=== PATIENT | male | born 1955 | race Caucasian/White ===

== ENCOUNTER → 2019-09-06 07:31 | Outpatient (CLI) | payer MEDICARE, OTHER, SELFPAY ==
--- NOTE | 2019-09-06 07:37 | CA_ITS ---
APPROVED REPORT Bilateral Lower Extremity Venous Study for DVT. 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: Cristin Dunbar RVT Indications Lower Extremity Pain: Bilateral Current Smoker CAD Risk Factors Cardiac Disease Current Smoker CAD Vein Imaging CFV (R): compressive, spontaneous, phasic, augmentation FEM (R): compressive, spontaneous, phasic, augmentation POP (R): compressive, spontaneous, phasic, augmentation PTV (R): Compressible GSV (R): Compressible Peroneals (R):Compressible GAS (R): Compressible CFV (L): compressive, spontaneous, phasic, augmentation FEM (L): compressive, spontaneous, phasic, augmentation POP (L): compressive, spontaneous, phasic, augmentation PTV (L): Compressible GSV (L): Compressible Peroneals (L):Compressible GAS (L): Compressible Findings Study suggests no evidence of DVT of the bilateral lower extremities. Study suggests no evidence of SVT of the bilateral lower extremities. Conclusion No evidence of DVT or superficial thrombophlebitis in the veins scanned of the right lower extremity. No evidence of DVT or superficial thrombophlebitis in the veins scanned of the left lower extremity. Electronically signed by : Genaro Trivedi MD 09/06/2019 16:45:02
--- NOTE | 2019-09-06 07:40 | US_ITS ---
APPROVED REPORT Exam Type: Lower Extremity Segmental Pressures Tire Retreader: Cristin Dunbar RVT Indications Claudication: Bilaterally Current Smoker skin colorchanges Risk Factors Hypertension CAD Hyperlipidemia Cardiac Disease Current Smoker Pressures/Indices Right Indices Left Indices Brachial 151.00 mmHg Brachial 142.00 mmHg Low Thigh 87.00 mmHg 0.58 Low Thigh Calf 71.00 mmHg 0.47 Calf 78.00 mmHg 0.52 Ankle(PT) 82.00 mmHg 0.54 Ankle(PT) 86.00 mmHg 0.57 Ankle(DP) 85.00 mmHg 0.56 Ankle(DP) 77.00 mmHg 0.51 Digit 43.00 mmHg 0.28 Digit 47.00 mmHg 0.31 Findings RT KAREN:0.54 LT KAREN:0.57 RT TBI:0.28 LT TBI:0.31 ABNORMAL WAVEFORMS AT ALL LEVELS BILATERAL DECREASED PULSES BILATERAL Conclusion RT KAREN:0.54 LT KAREN:0.57 RT TBI:0.28 LT TBI:0.31 ABNORMAL WAVEFORMS AT ALL LEVELS BILATERAL DECREASED PULSES BILATERAL MODERATE ARTERIAL DISEASE Critical Notification Physician Notified Date: 09/06/2019 Time: 08:42 Physician Name: JAJA Electronically signed by : Genaro Trivedi MD 09/06/2019 16:44:05
== END ==
PROVIDERS: PCP Nurse Practitioner Family; Visit Provider Nurse Practitioner Family
DX: I73.9 Peripheral vascular disease, unspecified (principal)
CPT/HCPCS: 93923; 93970

== ENCOUNTER → 2019-10-14 12:23 | Outpatient (CLI) | payer MEDICARE, OTHER, SELFPAY ==
[2019-10-14 15:19] LABS: Coronavirus 19 IgG Antibody Negative (Negative); Coronavirus 19 IgM Antibody Negative (Negative)
== END ==
DX: Z03.818 Encounter for observation for suspected exposure to other biological agents ruled out (principal)
CPT/HCPCS: 36415; 86328

== ENCOUNTER 2019-10-19 13:52 | Inpatient (IN) | payer MEDICARE, OTHER, SELFPAY ==
[2019-10-19] VITALS (13 sets, daily range): BP systolic 122–176; BP diastolic 68–108; PULSE 78–117; RESP 18–26; TEMP 36.5–36.7; O2SAT 97–100; BMI 19.9; BMI 25.9
--- NOTE | 2019-10-19 13:53 | ECG_ITS ---
APPROVED REPORT Exam: Resting ECG HR:107 bpm ECG Measurements Heart Rate 107 AXES MS P 67 QRSd 116 QRS 59 QT 352 T 7 QTc 469 <Conclusion> NSR with biatrial abnormality Right bundle branch block Abnormal ECG Electronically signed by : Talat Soto, 10/21/2019 17:09:53
--- NOTE | 2019-10-19 13:55 | CT_ITS ---
PROCEDURE: CT CHEST WO CON CLINICAL INDICATION: shortness of breath COMPARISON: No exams were available for comparison TECHNIQUE: Axial images obtained with sagittal and coronal reformats. All CT scans at the facility use one or more dose reduction, viz: automated exposure control, ma/kV adjustment per patient size (including targeted exams where dose is matched to indication, i.e. head), or iterative reconstruction technique. FINDINGS: HEART AND MEDIASTINAL STRUCTURES: Prior CABG. There is extensive coronary artery calcification. No mediastinal or hilar mass. There is a small hiatal hernia. There is mild thickening of the mid and distal esophagus with some minimal stranding of the para soft Jewel. A small paraesophageal lymph node is present at 12 mm along the left lateral and inferior aspect of the esophagus. LUNGS AND PLEURAL SPACES: COPD. Mild centrilobular and paraseptal emphysematous changes. There is mild respiratory motion artifact. There is consolidation in the right lower lobe posteriorly with small right effusion and mild atelectatic changes in the right middle lobe and right lower lobe. There are mild atelectatic changes in the left lung base. There are small bilateral pleural effusions. BONY STRUCTURES: There are old left-sided rib fractures UPPER ABDOMEN: Small hiatal hernia. Mild thickening of the distal esophagus. 1.8 cm left renal cyst. There is extensive renal artery calcification and/or stents. Most inferior image shows a small area of increased density in the gallbladder which could be due to artifact or a gallstone. ADDITIONAL FINDINGS: Gynecomastia IMPRESSION: 1. COPD with centrilobular and paraseptal emphysematous change with small bilateral effusions with consolidation in the right lung base posteriorly consistent with pneumonia and bilateral atelectatic changes. 2. Small hiatal hernia with mild thickening of the distal esophagus and mild stranding of the apparent soft Jewel fat. This could be seen with esophagitis. Neoplasm would be included in the differential diagnosis. Upper endoscopy or barium enema may provide further evaluation. There is a small paraesophageal lymph node. Dictated by: Genaro Trivedi MD 10/19/2019 14:43 Electronically signed by Genaro Trivedi MD in [place] 10/19/2019 14:43
[2019-10-19 14:06] LABS: ABG HCO3 20.8 mmhg (22.0-26.0); ABG Oxygen Saturation 99 % (90-100); ABG PCO2 45.3 mmhg (35.0-45.0); ABG PH 7.28 mmol/L (7.35-7.45); ABG PO2 290.7 mmhg (80-100); ABG TCO2 22.2 mmhg (23-27)
[2019-10-19 14:07] LABS: Oxygen 100% %
[2019-10-19 14:08] LABS: Allen's Test ACCEPTABLE; Source L RADIAL
[2019-10-19 14:08] LABS: Chloride 103 mmol/L (98-107); Sodium 136 mmol/L (136-145)
[2019-10-19 14:11] LABS: Alanine Aminotransferase 25 U/L (12-78); Albumin Level 3.7 g/dl (3.5-5.0); Albumin/Globulin Ratio 1.3 (1.1-1.8); Alkaline Phosphatase 64 U/L (38-126); Aspartate Amino Transferase 38 U/L (17-59); Bilirubin,Total 0.8 mg/dl (0.2-1.3); Blood Urea Nitrogen 12 mg/dl (9-20); Carbon Dioxide 22 mmol/L (22.0-30.0); Creatinine Clearance Estimated 53 mL/min (50-200); Estimated Glomerular Filt Rate 61 ml/min (>60); GFR (African American) 74 ML/MIN (>60); Globulin 2.9 g/dL (1.3-3.2); Total Protein,Serum 6.6 g/dl (6.3-8.2)
[2019-10-19 14:12] LABS: Basophils # 0.1 K/mm3 (0-0.2); Basophils % 0.5 % (0.1-2.0); Calcium 8.9 mg/dl (8.4-10.2); Eosinophils # 0.1 K/mm3 (0.0-0.4); Eosinophils % 0.3 % (0.1-12.0); Glucose 174 mg/dl (74-100); Hematocrit 41.5 % (42.0-52.0); Lymphocytes # 2.8 K/mm3 (0.7-4.5); Lymphocytes % 18.6 % (10-50); Mean Corpuscular HGB Conc 33.7 g/dL (31.8-35.4); Mean Corpuscular Hemoglobin 34.2 pg (27.0-31.2); Mean Corpuscular Volume 101.5 fl (80-94); Mean Platelet Volume 8.6 fl (7.4-10.4); Monocytes # 0.8 K/mm3 (0.1-1.0); Monocytes % 5.6 % (1.7-9.3); Neutrophils # 11.1 K/mm3 (1.8-7.8); Platelet Count 234 K/mm3 (142-424); Red Blood Count 4.09 M/mm3 (4.60-6.20); Red Cell Distribution Width 13.8 % (11.5-17.5); White Blood Count 14.8 K/mm3 (4.8-10.8)
--- NOTE | 2019-10-19 14:15 | PC.NURSE ---
Pt to rad
--- NOTE | 2019-10-19 14:17 | PC.NURSE ---
Pt to CT with MITZI Oviedo
--- NOTE | 2019-10-19 14:39 | PC.NURSE ---
Returned from ct.
[2019-10-19 14:49] LABS: Lactic Acid 1.2 mmol/L (0.7-2.1)
[2019-10-19 15:07] LABS: Adenovirus,PCR Not Detected (NotDetected); Bordetella Pertussis Not Detected (NotDetected); Chlamydophila Pneumoniae, PCR Not Detected (NotDetected); Coronavirus 19, PCR Not Detected (NotDetected); Coronavirus 229E Not Detected (NotDetected); Coronavirus NL63 Not Detected (NotDetected); Coronavirus OC43 Not Detected (NotDetected); Coronovirus HKU1,PCR Not Detected (NotDetected); Human Metapneumovirus Not Detected (NotDetected); Influenza A, PCR Not Detected (NotDetected); Influenza AH1, 2009 Not Detected (NotDetected); Influenza AH1, PCR Not Detected (NotDetected); Influenza AH3,PCR Not Detected (NotDetected); Influenza B, PCR Not Detected (NotDetected); Mycoplasma Pneumoniae, PCR Not Detected (NotDected); Parainfluenza 1, PCR Not Detected (NotDetected); Parainfluenza 2, PCR Not Detected (NotDetected); Parainfluenza 3, PCR Not Detected (NotDetected); Parainfluenza 4, PCR Not Detected (NotDetected); Respiratory Syncytial Virus Not Detected (NotDetected); Rhinovirus/Enterovirus Not Detected (NotDetected)
--- NOTE | 2019-10-19 15:18 | PC.NURSE ---
pt sleeping and resting comfortably non rebreather removed and 02 @ 6 lpm via cannula
--- NOTE | 2019-10-19 15:27 | HMH.EDSOB ---
ED Disposition Clinical Impression: Bilateral pneumonia Disposition: Admitted as Observation Condition on Discharge: Good Instructions: Pneumonia-Adult Additional Instructions: Spoke to Dr. Robles for admission for this patient. Referrals: Zehra Barajas [Primary Care Provider] - - Critical Care Critical Care Time: No Attestation: On 10/19/19, the high probability of a clinically significant, sudden or life threatening deterioration of the following system(s) required my full and direct attention, intervention and personal management. The time I documented below is in addition to time spent performing reported procedures but includes the following listed in this critical care notation. Medical Decision Making - Medical Records Medical records reviewed: Yes: I reviewed the patient's medical records. - Kyle Inquiry Pt receiving controlled substance: No Vital Signs: 10/19/19 13:47 10/19/19 14:07 10/19/19 15:17 Temperature 97.9 F Temperature Source Oral Pulse Rate [Radial] 107 H 117 H 78 Respiratory Rate 22 26 H Blood Pressure [Right Arm] 173/108 H 176/103 H 140/85 Blood Pressure Mean [Right Arm] 129 127 103 Blood Pressure Source [Right Arm] Automatic Cuff Automatic Cuff Automatic Cuff Blood Pressure Position [Right Arm] Sitting Sitting Sitting 02 Sat by Pulse Oximetry 100 99 100 Oxygen Delivery Method Non-Rebreather Non-Rebreather Nasal Cannula Oxygen Flow Rate (LPM) 6 10/19/19 15:25 Temperature Temperature Source Pulse Rate [Radial] 78 Respiratory Rate Blood Pressure [Right Arm] 149/89 H Blood Pressure Mean [Right Arm] 109 Blood Pressure Source [Right Arm] Automatic Cuff Blood Pressure Position [Right Arm] Sitting 02 Sat by Pulse Oximetry 100 Oxygen Delivery Method Nasal Cannula Oxygen Flow Rate (LPM) 6 - Lab Data Lab results reviewed: Yes: I reviewed the patient's lab results. Lab Results 10/19/19 13:44: WBC 14.8 H, RBC 4.09 L, Hgb 14.0 L, Hct 41.5 L, MCV 101.5 H, MCH 34.2 H, MCHC 33.7, RDW 13.8, Plt Count 234, MPV 8.6, Neut % (Auto) 75.0, Lymph % (Auto) 18.6, [place] % (Auto) 5.6, Eos % (Auto) 0.3, Baso % (Auto) 0.5, Neut # (Auto) 11.1 H, Lymph # (Auto) 2.8, [place] # (Auto) 0.8, Eos # (Auto) 0.1, Baso # (Auto) 0.1 10/19/19 13:44: Sodium 136, Potassium 4.0, Chloride 103, Carbon Dioxide 22, Anion Gap 15.0, BUN 12, Creatinine 1.20, Estimated Creat Clear 53, Estimated GFR 61, Est GFR ( Amer) 74, Glucose 174 H, Calcium 8.9, Total Bilirubin 0.8, AST 38, ALT 25, Alkaline Phosphatase 64, Total Protein 6.6, Albumin 3.7, Globulin 2.9, Albumin/Globulin Ratio 1.3 10/19/19 13:55: Specimen Source L radial, O2 % 100%, ABG pH 7.28 L, ABG pCO2 45.3 H, ABG pO2 290.7 H, ABG HCO3 20.8 L, ABG Total CO2 22.2 L, ABG O2 Saturation 99, ABG Base Excess -6.0 L, Genaro Test Acceptable 10/19/19 14:32: Lactate 1.2 Result diagrams: 10/19/19 13:44 10/19/19 13:44 Orders (Tests/Meds): ED MEDICATIONS Generic Name Dose Route Start Last Admin Trade Name Freq PRN Reason Stop Dose Admin Ceftriaxone Sodium 1 gm/ 50 mls @ 100 mls/hr 10/19/19 15:45 10/19/19 15:35 Sodium Chloride IV 11/02/19 15:44 100 mls/hr Q24H ALVAREZ Administration Protocol Sodium Chloride 50 ml 10/19/19 15:45 10/19/19 15:35 Sod Chlor 0.9% 50ml Bag IV 10/19/19 15:46 50 ml ONCE ONE Administration Discontinued Medications Generic Name Dose Route Start Last Admin Trade Name Freq PRN Reason Stop Dose Admin Albuterol/Ipratropium 3 ml 10/19/19 14:00 10/19/19 14:00 Duoneb 3ml Neb IH 10/19/19 14:01 3 ml ONCE ONE Administration Diphenhydramine HCl 25 mg 10/19/19 14:42 10/19/19 14:51 Benadryl 50mg/1ml Vial IV 10/19/19 14:43 25 mg ONCE ONE Administration Epinephrine HCl 0.3 mg 10/19/19 14:42 10/19/19 14:51 Epinephrine 1mg/Ml Amp IM 10/19/19 14:43 0.3 mg ONCE ONE Administration Methylprednisolone Sodium Succinate 125 mg 10/19/19 14:42 10/19/19 14:48 Solu-Medrol 125mg/2ml Vial IV 10/04
--- NOTE | 2019-10-19 15:29 | PC.NURSE ---
calling dr paz who is professional housing consultant for service at this time.
--- NOTE | 2019-10-19 15:32 | PC.NURSE ---
dr paz in a pt's room, will return call.
--- NOTE | 2019-10-19 15:44 | PC.NURSE ---
Pt to be admitted once COVID testing is back.
--- NOTE | 2019-10-19 16:58 | PC.NURSE ---
Report called to MITZI Horn.
--- NOTE | 2019-10-19 18:27 | PC.NURSE ---
Med rec completed with information from [facility] in [place]. Pt states he doesn't know what meds he takes.
[2019-10-19 18:54] LABS: Chloride 102 mmol/L (98-107); Sodium 136 mmol/L (136-145)
[2019-10-19 18:55] LABS: Potassium 4.6 mmoL/L (3.5-5.1)
[2019-10-19 18:57] LABS: Alanine Aminotransferase 25 U/L (12-78); Albumin Level 3.7 g/dl (3.5-5.0); Albumin/Globulin Ratio 1.3 (1.1-1.8); Alkaline Phosphatase 63 U/L (38-126); Anion Gap 14.6 mEq/L (5-15); Aspartate Amino Transferase 36 U/L (17-59); Bilirubin,Total 0.7 mg/dl (0.2-1.3); Blood Urea Nitrogen 14 mg/dl (9-20); Calcium 9.1 mg/dl (8.4-10.2); Carbon Dioxide 24 mmol/L (22.0-30.0); Creatinine Clearance Estimated 71 mL/min (50-200); Estimated Glomerular Filt Rate 67 ml/min (>60); GFR (African American) 81 ML/MIN (>60); Globulin 2.9 g/dL (1.3-3.2); Glucose 114 mg/dl (74-100); Total Protein,Serum 6.6 g/dl (6.3-8.2)
--- NOTE | 2019-10-19 19:04 | PC.NURSE ---
report given to olga
--- NOTE | 2019-10-19 20:11 | PC.NURSE ---
Pt's room air sat at rest = 93%. RT placed pt back on O2 at 2 lpm after neb tx.
--- NOTE | 2019-10-19 21:51 | HMH.HP ---
*Admission Date: 10/19/19 *Chief complaint: sob *History of present illness: this wm presented to [facility] ed with sob -pt had recent femoral vascular procedure and had sob and was found to have cap- pt was admitted with ivf and abx - has sig hx of copd and tob use - [facility] History I have reviewed the patient's past medical history: Yes Medical History: Reports:: Atherosclerotic Heart Disease, Hyperlipidemia, Hypertension, Myocardial Infarction Denies:: Cancer, Diabetes Mellitus Type 1, Diabetes Mellitus Type 2, MRSA *Have you ever received a pneumonia vaccine?: No *Have you received a flu vaccine this season?: No Other Surgeries: Yes: CABG, Other (Neck sx) Amputation: No Fractures: No - *Social History Last grade of school completed: 9th or 10th Smoking Status: Current every day smoker Tobacco Type: cigarettes # Packs/Day (cigarettes): 1 Alcohol Intake: current Alcohol Intake Frequency:: 3 or more drinks per day *Occupational Status:: employed Housing: house Household Members: none *Travel in the last 8 weeks: None Family Hx:: Diabetes, Heart Attack, Hyperlipidemia, Hypertension, Stroke Review of Systems - Review of Systems Review of systems:: pertinent systems reviewed and negative unless documented below - Constitutional Denies fever(s) - Eyes Denies change in vision - ENT Denies sore throat - *Cardiovascular Reports shortness of breath, Denies chest pain at rest - *Respiratory Reports cough, Reports shortness of breath, Denies coughing up blood - *Gastrointestinal Denies vomiting blood - *Genitourinary Denies blood in urine - *Musculoskeletal Denies joint pain - Integumentary/Breasts Denies rash - *Neurologic Denies seizure-like activity - Psychiatric Denies anxiety Meds Home Medications Medication Instructions Recorded Confirmed Type Clopidogrel Bisulfate [Clopidogrel 75 mg PO DAILY 10/19/19 10/19/19 History 75mg Tab] Lisinopril/Hydrochlorothiazide 1 tab PO DAILY 10/19/19 10/19/19 History [Lisinopril-Hctz 10-12.5 mg Tab] Pravastatin Sodium [Pravachol] 40 mg PO HS 10/19/19 10/19/19 History carvediloL [Carvedilol 6.25mg Tab] 6.25 mg PO BID 10/19/19 10/19/19 History Allergies Allergy/AdvReac Type Severity Reaction Status Date / Time Fish Containing Products Allergy Unknown Unknown Verified 10/19/19 15:39 allergy reaction fish derived Allergy Unknown Unknown Verified 10/19/19 15:39 allergy reaction shellfish derived Allergy Unknown Unknown Verified 10/19/19 15:39 allergy reaction Exam Vital signs and Labs for Last 24 Hours: Temp Pulse Resp BP Pulse Ox 97.7 F 102 H 20 122/68 98 10/19/19 19:41 10/19/19 20:08 10/19/19 19:41 10/19/19 19:41 10/19/19 20:00 Laboratory Results - last 24 hr 10/19/19 13:44: WBC 14.8 H, RBC 4.09 L, Hgb 14.0 L, Hct 41.5 L, MCV 101.5 H, MCH 34.2 H, MCHC 33.7, RDW 13.8, Plt Count 234, MPV 8.6, Neut % (Auto) 75.0, Lymph % (Auto) 18.6, [place] % (Auto) 5.6, Eos % (Auto) 0.3, Baso % (Auto) 0.5, Neut # (Auto) 11.1 H, Lymph # (Auto) 2.8, [place] # (Auto) 0.8, Eos # (Auto) 0.1, Baso # (Auto) 0.1 10/19/19 13:44: Sodium 136, Potassium 4.0, Chloride 103, Carbon Dioxide 22, Anion Gap 15.0, BUN 12, Creatinine 1.20, Estimated Creat Clear 53, Estimated GFR 61, Est GFR ( Amer) 74, Glucose 174 H, Calcium 8.9, Total Bilirubin 0.8, AST 38, ALT 25, Alkaline Phosphatase 64, Total Protein 6.6, Albumin 3.7, Globulin 2.9, Albumin/Globulin Ratio 1.3 10/19/19 13:55: Specimen Source L radial, O2 % 100%, ABG pH 7.28 L, ABG pCO2 45.3 H, ABG pO2 290.7 H, ABG HCO3 20.8 L, ABG Total CO2 22.2 L, ABG O2 Saturation 99, ABG Base Excess -6.0 L, Genaro Test Acceptable 10/19/19 14:32: Lactate 1.2 10/19/19 14:55: Chlamy pneumoniae PCR Not detected, Adenovirus (PCR) Not detected, B. pertussis DNA (PCR) Not detected, Coronavirus OC43 (PCR) Not detected, Coronavirus HKU1 (PCR) Not detected, Coronavirus 229E (PCR) Not detected, COVID-19 PCR Not de
[2019-10-20] VITALS (7 sets, daily range): BP systolic 118–166; BP diastolic 72–98; PULSE 80–108; RESP 18–22; TEMP 36.6–36.9; O2SAT 95–99; BMI 26.1
--- NOTE | 2019-10-20 04:07 | PC.NURSE ---
Addendum entered by Mitzi Nuno RN 10/20/19 04:23: Border on cath site drainage outlined. Original Note: Pt has rested well this shift. Femoral cath site on left side remains soft with no hematoma present. Dressing is CDI. Call light is within reach, no complaints at this time. Will continue to monitor.
--- NOTE | 2019-10-20 06:00 | XR_ITS ---
PROCEDURE: XR CHEST PORTABLE CLINICAL INDICATION: pneumonia COMPARISON: CXR1 CHEST-PORTABLE from 10/08/2015 CXR2V XR chest 2V from 04/12/2018 CT CHEST WO CON from 10/19/2019 FINDINGS: There is cardiomegaly with mild pulmonary venous congestion suggesting mild CHF. Consolidation is present in the right lower lobe consistent with pneumonia. The remaining lungs are clear. Small right effusion. No acute bony findings. There is an old right clavicular fracture. IMPRESSION: Mild CHF with right lower lobe pneumonia with small effusion. The pneumonia peers to have progressed since the previous CT scan of 10/19/2019 Dictated by: Genaro Trivedi MD 10/20/2019 06:29 Electronically signed by Genaro Trivedi MD in [place] 10/20/2019 06:29
[2019-10-20 06:27] LABS: Eosinophils % 0.1 % (0.1-12.0); Mean Corpuscular Hemoglobin 34.2 pg (27.0-31.2); Monocytes # 0.2 K/mm3 (0.1-1.0); Red Cell Distribution Width 13.7 % (11.5-17.5)
[2019-10-20 06:37] LABS: Hematocrit 34.3 % (42.0-52.0); Lymphocytes # 0.6 K/mm3 (0.7-4.5); Lymphocytes % 6.1 % (10-50); Mean Corpuscular HGB Conc 34.8 g/dL (31.8-35.4); Mean Corpuscular Volume 98.5 fl (80-94); Mean Platelet Volume 8.8 fl (7.4-10.4); Monocytes % 2.5 % (1.7-9.3); Neutrophils # 8.1 K/mm3 (1.8-7.8); Neutrophils % 91.2 % (37.0-80.0); Platelet Count 147 K/mm3 (142-424); Red Blood Count 3.49 M/mm3 (4.60-6.20); White Blood Count 8.9 K/mm3 (4.8-10.8)
[2019-10-20 06:40] LABS: Hemoglobin 11.9 g/dL (14.1-18.0)
[2019-10-20 06:42] LABS: MANUAL DIFFERENTIAL MANUAL DIFFERENTIAL (MANUAL DIFF)
--- NOTE | 2019-10-20 06:49 | P.CONPHA_ITS ---
[facility] Pharmacy VTE Monitoring - Patient Demographics Admission date: 10/19/19 Report Date: 10/20/19 Time: 06:49 Allergies/Adverse Reactions: Patient Allergies Fish Containing Products Allergy (Unknown, Verified 10/19/19 15:39) Unknown allergy reaction fish derived Allergy (Unknown, Verified 10/19/19 15:39) Unknown allergy reaction shellfish derived Allergy (Unknown, Verified 10/19/19 15:39) Unknown allergy reaction Height: 1.7 m Weight: 75.523 kg Patient Problems: Current Active Problems Bilateral pneumonia (Acute) CAP (community acquired pneumonia) (Acute) COPD (chronic obstructive pulmonary disease) (Acute) Tobacco use (Acute) - VTE Risk Labs: VTE Related Lab Results Hgb 11.9 g/dL (14.1-18.0) L D 10/20/19 05:51 Hct 34.3 % (42.0-52.0) L 10/20/19 05:51 Plt Count 147 K/mm3 (142-424) D 10/20/19 05:51 BUN 14 mg/dl (9-20) 10/19/19 18:40 Creatinine 1.10 mg/dl (0.66-1.25) 10/19/19 18:40 Estimated Creat Clear 71 mL/min (50-200) 10/19/19 18:40 Was VTE Risk Assessment Performed: Yes VTE Score: 3 VTE Risk Level: Low Risk - Prophylaxis VTE Prophylaxis Ordered?: Yes Types of VTE Prophylaxis: TEDS Knee High Location of Applied Device: Bilateral Lower Extremeties - VTE Diagnosis Confirmed Treatment or plan recommended: Continue Current Treatment
--- NOTE | 2019-10-20 06:50 | CA_ITS ---
APPROVED REPORT EXAM: Comprehensive 2D, Doppler, and color-flow Echocardiogram Grade Teacher: Marsha Ureña RT(R) Ht: 5 ft 7 in Wt: 166lbs BSA: 1.87 BP: 140/77 mmHg Indications: COPD, smoker, fatigue, edema, SOB, MORENO, hyperlipidemia, CAD, CABG 2D Dimensions LVOT 2.06 cm (M/F) 1.5-2.5 M-Mode Dimensions RVDd 2.04 cm (0.9-2.6) LVDd 5.14 cm (3.5-5.7) LVDs 4.25 cm (3.5-5.7) IVSd 1.14 cm (0.6-1.1) PWd 0.75 cm (0.6-1.1) EF (Teich) 35.90% FS 17.30% EDV (Teich) 126.10 mL ESV (Teich) 80.80 mL Left Ventricle Left atrium is moderately enlarged, left ventricle is normal size, mild concentric left ventricular hypertrophy, visually estimated ejection fraction 45%, there is marked hypokinesis involving the basal septum and inferior, inferior basal wall. Grade 1 diastolic dysfunction seen without tissue Doppler evidence of raise left atrial pressure. Right Ventricle Right atrium and right ventricle are mildly enlarged with normal contractility. Aortic Valve Aortic valve is minimally thickened and fibrosed. There is no aortic stenosis. Mitral Valve Mitral valve is grossly normal, there is moderate to severe mitral regurgitation. Tricuspid Valve Tricuspid valve is grossly normal, there is mild tricuspid regurgitation, tricuspid regurgitation jet velocity is inadequate for calculation of the right ventricular systolic pressure. Pulmonic Valve Pulmonic valve is poorly visualized. Great Vessels Aortic root is normal size. Pericardium No significant pericardial effusion noted. Conclusion 1. Moderately enlarged left atrium, normal left ventricular size, mild concentric left ventricular hypertrophy, visually estimated ejection fraction 45% with multiple segmental wall motion abnormality described above, grade 1 diastolic dysfunction seen without tissue Doppler evidence of raise left atrial pressure. 2. Moderate to severe mitral regurgitation. 3. Mild tricuspid regurgitation. 4. No significant pericardial effusion noted. Electronically signed by : Parviz Hernandez, 10/20/2019 11:38:00
--- NOTE | 2019-10-20 07:51 | HMH.PHAINT ---
MEDICATION RECONCILIATION COMPLETED BY USING EXTERNAL FILL HISTORY
--- NOTE | 2019-10-20 07:56 | HMH.PHAINT ---
HOME MEDICATION RECONCILIATION COMPLETED USING LIST FROM CLINIC PHARMACY
[2019-10-20 08:01] LABS: Lymphocytes % 6 % (10-50); Monocytes % 3 % (2-9); Neutrophils % 91 % (42-76); Total Cells Counted 100
[2019-10-20 08:02] LABS: Platelet Estimate Normal; RBC Morphology Normal
--- NOTE | 2019-10-20 08:50 | HMH.ACPN2 ---
Internal Medicine - PN: Subj *Date: 10/20/19 *Time: 08:04 Interval history: Patient laying in bed Exam Vital signs and Labs for Last 24 Hours: Temp Pulse Resp BP Pulse Ox 98.4 F 108 H 20 166/98 H 97 10/20/19 08:00 10/20/19 08:00 10/20/19 08:00 10/20/19 08:00 10/20/19 08:00 Laboratory Results - last 24 hr 10/19/19 13:44: WBC 14.8 H, RBC 4.09 L, Hgb 14.0 L, Hct 41.5 L, MCV 101.5 H, MCH 34.2 H, MCHC 33.7, RDW 13.8, Plt Count 234, MPV 8.6, Neut % (Auto) 75.0, Lymph % (Auto) 18.6, [place] % (Auto) 5.6, Eos % (Auto) 0.3, Baso % (Auto) 0.5, Neut # (Auto) 11.1 H, Lymph # (Auto) 2.8, [place] # (Auto) 0.8, Eos # (Auto) 0.1, Baso # (Auto) 0.1 10/19/19 13:44: Sodium 136, Potassium 4.0, Chloride 103, Carbon Dioxide 22, Anion Gap 15.0, BUN 12, Creatinine 1.20, Estimated Creat Clear 53, Estimated GFR 61, Est GFR ( Amer) 74, Glucose 174 H, Calcium 8.9, Total Bilirubin 0.8, AST 38, ALT 25, Alkaline Phosphatase 64, Total Protein 6.6, Albumin 3.7, Globulin 2.9, Albumin/Globulin Ratio 1.3 10/19/19 13:55: Specimen Source L radial, O2 % 100%, ABG pH 7.28 L, ABG pCO2 45.3 H, ABG pO2 290.7 H, ABG HCO3 20.8 L, ABG Total CO2 22.2 L, ABG O2 Saturation 99, ABG Base Excess -6.0 L, Genaro Test Acceptable 10/19/19 14:32: Lactate 1.2 10/19/19 14:55: Chlamy pneumoniae PCR Not detected, Adenovirus (PCR) Not detected, B. pertussis DNA (PCR) Not detected, Coronavirus OC43 (PCR) Not detected, Coronavirus HKU1 (PCR) Not detected, Coronavirus 229E (PCR) Not detected, COVID-19 PCR Not detected, Coronavirus NL63 (PCR) Not detected, Human Metapneumovir PCR Not detected, Influenza A (H1) PCR Not detected, Influ A (H1N1/09) PCR Not detected, Influenza A (H3) PCR Not detected, Influenza Type A (PCR) Not detected, Influenza Type B (PCR) Not detected, M. pneumoniae (PCR) Not detected, Parainfluenza 1 (PCR) Not detected, Parainfluenza 2 (PCR) Not detected, Parainfluenza 3 (PCR) Not detected, Parainfluenza 4 (PCR) Not detected, RSV (PCR) Not detected, Entero/Rhino (PCR) Not detected 10/19/19 18:40: Sodium 136, Potassium 4.6, Chloride 102, Carbon Dioxide 24, Anion Gap 14.6, BUN 14, Creatinine 1.10, Estimated Creat Clear 71, Estimated GFR 67, Est GFR ( Amer) 81, Glucose 114 H D, Calcium 9.1, Total Bilirubin 0.7, AST 36, ALT 25, Alkaline Phosphatase 63, Total Protein 6.6, Albumin 3.7, Globulin 2.9, Albumin/Globulin Ratio 1.3 10/20/19 05:51: WBC 8.9 D, RBC 3.49 L, Hgb 11.9 L D, Hct 34.3 L, MCV 98.5 H, MCH 34.2 H, MCHC 34.8, RDW 13.7, Plt Count 147 D, MPV 8.8, Neut % (Auto) 91.2 H, Lymph % (Auto) 6.1 L, [place] % (Auto) 2.5, Eos % (Auto) 0.1, Baso % (Auto) 0.0 L, Neut # (Auto) 8.1 H, Lymph # (Auto) 0.6 L, [place] # (Auto) 0.2, Eos # (Auto) 0.0, Baso # (Auto) 0.0, Total Counted 100, Neutrophils % (Manual) 91 H, Lymphocytes % (Manual) 6 L, Monocytes % (Manual) 3, Platelet Estimate Normal, RBC Morphology Normal I & O for Last 24 hours: Intake & Output 10/17/19 10/18/19 10/19/19 10/20/19 11:59 11:59 11:59 11:59 Intake Total 840 / 840 Output Total 200 / 200 Balance 640 / 640 Weight 166 lb 8 oz Microbiology Reports for the Last 24 Hours: Microbiology 10/19/19 14:32 Blood Blood Culture - Preliminary 10/19/19 15:15 Sputum - Expectorated Sputum Gram Stain - Final 10/19/19 15:15 Sputum - Expectorated Sputum Sputum Culture - Preliminary - Constitutional no acute distress - *Routine HEENT Exam Head: Present: normocephalic Eye: Present: PERRL ENT: Present: mucous membranes moist - *Routine Neck Exam Present: supple. Absent: lymphadenopathy - *Routine Respiratory Exam Present: rhonchi, wheezes - *Routine Cardiovascular Exam Present: RRR - *Routine Abdominal Exam Present: soft, normoactive bowel sounds. Absent: tenderness - *Routine Extremities Exam Present: normal capillary refill. Absent: cyanosis, clubbing, edema - *Routine Skin Exam Present: warm. Absent: rash - *Routine Neurological Exam Present: alert, oriented X3 - R
--- NOTE | 2019-10-20 10:49 | HMH.CNCARD ---
History of Present Illness Consult date: 10/20/19 Requesting physician: Simone Robles Consult reason: shortness of breath Chief complaint: SOA Additional Medical History:: 1. Ongoing tobacco use of greater than 50 pack years 2. Hypertension 3. Hyperlipidemia 4. Peripheral arterial disease A. Status post vascular stent placed in the right arterial system, 10/2019, [place], [place] 5. Peripheral neuropathy of both feet 6. Coronary artery disease A. History of myocardial infarction with subsequent cardiac arrest approximately 2004 with subsequent coronary stenting and coronary bypass grafting at [facility] in [facility]. History of present illness: this wm presented to [facility] ed with sob -pt had recent femoral vascular procedure and had sob and was found to have cap- pt was admitted with ivf and abx - has sig hx of copd and tob use The above per Dr. Robles Patient denies any chest pain, pressure or tightness. His main complaint is shortness of breath. Initial EKG in the ER is read as atrial flutter but after discussing with Dr. Solomon it is a sinus rhythm with mild tachycardic rate at 107 bpm. Patient has a cardiac history significant for cardiac arrest approximately 15 years ago with [facility] to [place] and subsequent coronary stents placed followed by coronary artery bypass grafting within 2 weeks of the stents placed. He denies any cardiac symptoms or problems since then. He is not a very good historian. Preliminary echocardiogram today as his ejection fraction at 40 to 50% with moderate to severe mitral regurgitation. Mild tricuspid regurgitation with RVSP of 46 to 50 mmHg. Patient does continue to smoke. [facility] History Medical History: Reports:: Atherosclerotic Heart Disease, Hyperlipidemia, Hypertension, Myocardial Infarction Denies:: Cancer, Diabetes Mellitus Type 1, Diabetes Mellitus Type 2, MRSA *Have you ever received a pneumonia vaccine?: No *Have you received a flu vaccine this season?: No Other Surgeries: Yes: CABG, Other (Neck sx) Amputation: No Fractures: No - *Social History Last grade of school completed: 9th or 10th Smoking Status: Current every day smoker Tobacco Type: cigarettes # Packs/Day (cigarettes): 1 Alcohol Intake: current Alcohol Intake Frequency:: 3 or more drinks per day *Occupational Status:: employed Housing: house Household Members: none *Travel in the last 8 weeks: None Family Hx:: Diabetes, Heart Attack, Hyperlipidemia, Hypertension, Stroke Meds Home Medications Medication Instructions Recorded Confirmed Type Clopidogrel Bisulfate [Clopidogrel 75 mg PO DAILY 10/19/19 10/20/19 History 75mg Tab] Lisinopril/Hydrochlorothiazide 1 tab PO DAILY 10/19/19 10/20/19 History [Lisinopril-Hctz 10-12.5 mg Tab] Pravastatin Sodium [Pravachol] 40 mg PO HS 10/19/19 10/20/19 History carvediloL [Carvedilol 6.25mg Tab] 6.25 mg PO BID 10/19/19 10/20/19 History Allergies Allergy/AdvReac Type Severity Reaction Status Date / Time Fish Containing Products Allergy Unknown Unknown Verified 10/19/19 15:39 allergy reaction fish derived Allergy Unknown Unknown Verified 10/19/19 15:39 allergy reaction shellfish derived Allergy Unknown Unknown Verified 10/19/19 15:39 allergy reaction Review of Systems - Review of Systems Review of systems:: pertinent systems reviewed and negative unless documented below - *Cardiovascular Reports shortness of breath, Reports shortness of breath with activity, Denies chest pain - *Respiratory Reports cough, Reports shortness of breath with activity - *Gastrointestinal Denies loose stools, Denies nausea, Denies vomiting - *Genitourinary Denies blood in urine - *Musculoskeletal Denies joint pain, Denies back pain - *Neurologic Denies dizziness, Denies seizure-like activity, Denies fainting, Denies tingling Exam Vital signs and Labs for Last 24 Hours: Temp Pulse Resp BP Pulse Ox
[2019-10-21] VITALS: BP 145/85; PULSE 87; RESP 24; TEMP 36.6; O2SAT 97
[2019-10-21 04:00] VITALS: BP 143/87; PULSE 93; RESP 20; TEMP 36.6; O2SAT 97
[2019-10-21 05:00] VITALS: BMI 26.4
--- NOTE | 2019-10-21 05:56 | PC.NURSE ---
No acute changes this shift. Pt encouraged to use IS often, pt seemed disinterested, needs reinforcement. Tolerating 1LNC. Voiding clear, yellow urine w/o issues. No complaints reported to staff. Cath site drsg on left groin removed and site is soft w/o signs of hematoma.
[2019-10-21 06:40] VITALS: PULSE 92; PULSE 93; O2SAT 98
[2019-10-21 07:56] VITALS: BP 127/91; PULSE 69; RESP 28; TEMP 36.4; O2SAT 93
[2019-10-21 08:00] VITALS: O2SAT 93
--- NOTE | 2019-10-21 10:48 | SW/DCPLANNER ---
I have spoke with this patient regarding discharge plans. Patient resides at home alone and stated that everything is well at home. [place] and several family members lives close by/check on him often. 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 Patient stated he has no further needs at this time. Patient has refused home health at this time.
--- NOTE | 2019-10-21 12:45 | HMH.PNCARD ---
Subjective Date: 10/21/19 Time: 08:00 Exam Vital signs and Labs for Last 24 Hours: Temp Pulse Resp BP Pulse Ox 97.6 F 69 28 H 127/91 H 93 L 10/21/19 07:56 10/21/19 07:56 10/21/19 07:56 10/21/19 07:56 10/21/19 08:00 I & O for Last 24 hours: Intake & Output 10/18/19 10/19/19 10/20/19 10/21/19 23:59 23:59 23:59 23:59 Intake Total 360 / 480 2360 / 2360 360 / 360 Output Total 200 / 200 350 / 350 Balance 160 / 280 2009 360 / 360 Weight 165 lb 7 oz 166 lb 8 oz 168 lb 4 oz Microbiology Reports for the Last 24 Hours: Microbiology 10/19/19 14:32 Blood Blood Culture - Preliminary 10/19/19 15:15 Sputum - Expectorated Sputum Gram Stain - Final 10/19/19 15:15 Sputum - Expectorated Sputum Sputum Culture - Preliminary 10/19/19 14:32 Blood Blood Culture - Preliminary Progress Note: A&P (1) CAP (community acquired pneumonia) Status: Acute Current Visit: Yes (2) COPD (chronic obstructive pulmonary disease) Status: Acute Current Visit: Yes (3) Tobacco use Status: Acute Current Visit: Yes (4) SIRS (systemic inflammatory response syndrome) Status: Acute Current Visit: Yes
--- NOTE | 2019-10-21 12:47 | HMH.PNCARD ---
Subjective Date: 10/21/19 Time: 08:00 Principal diagnosis: Bilateral pneumonia, CAP Interval history: 64 year old male admitted to [facility] with CAP receiving IV fluids and Antibiotics. Pt had recent femoral vascular procedure. Pt is doing well this am. Pt denies chest pain, tightness or pressure. Pt continue to have shortness of breath. This is being managed by PCP.Pt stated he is doing his breathing exercises as directed. Denies palpitations or dizziness. VS stable. Pt's heart rate remains at 100-110 bpm. Echo revealed: 1. Moderately enlarged left atrium, normal left ventricular size, mild concentric left ventricular hypertrophy, visually estimated ejection fraction 45% with multiple segmental wall motion abnormality described above, grade 1 diastolic dysfunction seen without tissue Doppler evidence of raise left atrial pressure. 2. Moderate to severe mitral regurgitation.3. Mild tricuspid regurgitation.4. No significant pericardial effusion noted. Dr. NAIDU does not recommend a CLIFTON at this time. will continue to monitor. From a cardiac standpoint pt is to clear to go home. Recommend to continue medications as prescribed. Follow up in cardiac clinic in one week for further cardiac testing. Thank you for letting cardiology participate in the care of this pt. Exam Vital signs and Labs for Last 24 Hours: Temp Pulse Resp BP Pulse Ox 97.6 F 69 28 H 127/91 H 93 L 10/21/19 07:56 10/21/19 07:56 10/21/19 07:56 10/21/19 07:56 10/21/19 08:00 I & O for Last 24 hours: Intake & Output 10/18/19 10/19/19 10/20/19 10/21/19 23:59 23:59 23:59 23:59 Intake Total 360 / 480 2360 / 2360 360 / 360 Output Total 200 / 200 350 / 350 Balance 160 / 280 2009 360 / 360 Weight 165 lb 7 oz 166 lb 8 oz 168 lb 4 oz Microbiology Reports for the Last 24 Hours: Microbiology 10/19/19 14:32 Blood Blood Culture - Preliminary 10/19/19 15:15 Sputum - Expectorated Sputum Gram Stain - Final 10/19/19 15:15 Sputum - Expectorated Sputum Sputum Culture - Preliminary 10/19/19 14:32 Blood Blood Culture - Preliminary - Constitutional mild distress, average body habitus, cooperative - *Routine HEENT Exam Head: Present: normocephalic - *Routine Neck Exam Present: supple, full ROM, normal carotid upstroke. Absent: JVD, carotid bruit, lymphadenopathy - Routine Chest/Breast/Axilla Exam Chest wall: Present: tenderness - *Routine Respiratory Exam Present: accessory muscle use, decreased breath sounds, CTA bilaterally - *Routine Cardiovascular Exam Present: RRR, Normal S1, Normal S2, tachycardia. Absent: murmur, gallop - *Routine Abdominal Exam Present: soft, normoactive bowel sounds. Absent: tenderness, distended, guarding - *Routine Extremities Exam Present: full ROM, pulses intact, normal capillary refill. Absent: cyanosis, clubbing, edema - *Routine Neurological Exam Present: alert, oriented X3, normal reflexes, moving all extremities - Routine Psychiatric Exam Present: normal affect, normal thought process. Absent: suicidal ideation, anxious Progress Note: A&P (1) CAP (community acquired pneumonia) Start date: 10/21/19 Status: Acute Current Visit: Yes (2) COPD (chronic obstructive pulmonary disease) Status: Acute Current Visit: Yes (3) Tobacco use Status: Acute Current Visit: Yes (4) SIRS (systemic inflammatory response syndrome) Status: Acute Current Visit: Yes Assessment and Plan for All Diagnoses:: Plan: 1. From a cardiac standpont, pt may be discharged him. 2. HTN: clinically stable. Continue prescribed medication as directed. 3. LDL goal<55. Continue statin therapy. 4. PAD stable. s/p vascular intervention. 5. Follow up in cardiology clinic in one week or sooner if symptoms develop/persist.
--- NOTE | 2019-10-21 14:40 | HMH.DCSUM ---
General - General Admission date:: 10/19/19 Discharge date: 10/21/19 HPI HPI: this wm presented to [facility] ed with sob -pt had recent femoral vascular procedure and had sob and was found to have cap- pt was admitted with ivf and abx - has sig hx of copd and tob use - Hospital Course Hospital Course: Laboratory Tests 10/19/19 10/19/19 10/19/19 13:44 13:44 13:55 WBC 14.8 H RBC 4.09 L Hgb 14.0 L Hct 41.5 L MCV 101.5 H MCH 34.2 H MCHC 33.7 RDW 13.8 Plt Count 234 MPV 8.6 Neut % (Auto) 75.0 Lymph % (Auto) 18.6 [place] % (Auto) 5.6 Eos % (Auto) 0.3 Baso % (Auto) 0.5 Neut # (Auto) 11.1 H Lymph # (Auto) 2.8 [place] # (Auto) 0.8 Eos # (Auto) 0.1 Baso # (Auto) 0.1 Total Counted Neutrophils % (Manual) Lymphocytes % (Manual) Monocytes % (Manual) Platelet Estimate RBC Morphology Specimen Source L radial O2 % 100% ABG pH 7.28 L ABG pCO2 45.3 H ABG pO2 290.7 H ABG HCO3 20.8 L ABG Total CO2 22.2 L ABG O2 Saturation 99 ABG Base Excess -6.0 L Genaro Test Acceptable Sodium 136 Potassium 4.0 Chloride 103 Carbon Dioxide 22 Anion Gap 15.0 BUN 12 Creatinine 1.20 Estimated Creat Clear 53 Estimated GFR 61 Est GFR ( Amer) 74 Glucose 174 H Lactate Calcium 8.9 Total Bilirubin 0.8 AST 38 ALT 25 Alkaline Phosphatase 64 Total Protein 6.6 Albumin 3.7 Globulin 2.9 Albumin/Globulin Ratio 1.3 Chlamy pneumoniae PCR Adenovirus (PCR) B. pertussis DNA (PCR) Coronavirus OC43 (PCR) Coronavirus HKU1 (PCR) Coronavirus 229E (PCR) COVID-19 PCR Coronavirus NL63 (PCR) Human Metapneumovir PCR Influenza A (H1) PCR Influ A (H1N1/09) PCR Influenza A (H3) PCR Influenza Type A (PCR) Influenza Type B (PCR) M. pneumoniae (PCR) Parainfluenza 1 (PCR) Parainfluenza 2 (PCR) Parainfluenza 3 (PCR) Parainfluenza 4 (PCR) RSV (PCR) Entero/Rhino (PCR) 10/19/19 10/19/19 10/19/19 14:32 14:55 18:40 WBC RBC Hgb Hct MCV MCH MCHC RDW Plt Count MPV Neut % (Auto) Lymph % (Auto) [place] % (Auto) Eos % (Auto) Baso % (Auto) Neut # (Auto) Lymph # (Auto) [place] # (Auto) Eos # (Auto) Baso # (Auto) Total Counted Neutrophils % (Manual) Lymphocytes % (Manual) Monocytes % (Manual) Platelet Estimate RBC Morphology Specimen Source O2 % ABG pH ABG pCO2 ABG pO2 ABG HCO3 ABG Total CO2 ABG O2 Saturation ABG Base Excess Genaro Test Sodium 136 Potassium 4.6 Chloride 102 Carbon Dioxide 24 Anion Gap 14.6 BUN 14 Creatinine 1.10 Estimated Creat Clear 71 Estimated GFR 67 Est GFR ( Amer) 81 Glucose 114 H D Lactate 1.2 Calcium 9.1 Total Bilirubin 0.7 AST 36 ALT 25 Alkaline Phosphatase 63 Total Protein 6.6 Albumin 3.7 Globulin 2.9 Albumin/Globulin Ratio 1.3 Chlamy pneumoniae PCR Not detected Adenovirus (PCR) Not detected B. pertussis DNA (PCR) Not detected Coronavirus OC43 (PCR) Not detected Coronavirus HKU1 (PCR) Not detected Coronavirus 229E (PCR) Not detected COVID-19 PCR Not detected Coronavirus NL63 (PCR) Not detected Human Metapneumovir PCR Not detected Influenza A (H1) PCR Not detected Influ A (H1N1/09) PCR Not detected Influenza A (H3) PCR Not detected Influenza Type A (PCR) Not detected Influenza Type B (PCR) Not detected M. pneumoniae (PCR) Not detected Parainfluenza 1 (PCR) Not detected Parainfluenza 2 (PCR) Not detected Parainfluenza 3 (PCR) Not detected Parainfluenza 4 (PCR) Not detected RSV (PCR) Not detected Entero/Rhino (PCR) Not detected 10/20/19 05:51 WBC 8.9 D RBC 3.49 L Hgb 11.9 L D Hct 34.3 L MCV 98.5 H MCH 34.2 H MCHC 34.8
--- NOTE | 2019-10-21 15:43 | PC.NURSE ---
THIS RN PROVIDED D/C INSTRUCTIONS FOR PNEUMONIA AND MEDICATIONS. PATIENT HAD REQUESTED AN INHALER, THIS RN PHONED JASWINDERKANDIS TO INQUIRE, RAMIREZ STATED THAT SHE WOULD CALL IN A PRESCRIPTION AT CLINIC PHARMACY. NO OTHER CONCERNS AT THIS TIME.
== END 2019-10-21 15:35 | disposition home or self-care (01) | DRG 194 ==
LOC: ER 15:41 → 2ND 16:47
PROVIDERS: Admitting Provider Emergency Medicine; Emergency Provider Family Medicine; PCP Nurse Practitioner Family; Visit Provider Emergency Medicine
DX: J18.9 Pneumonia, unspecified organism (principal); J44.1 Chronic obstructive pulmonary disease with (acute) exacerbation; R65.10 Systemic inflammatory response syndrome (SIRS) of non-infectious origin without acute organ dysfunction; Z72.0 Tobacco use; I11.0 Hypertensive heart disease with heart failure; I25.5 Ischemic cardiomyopathy; I70.203 Unspecified atherosclerosis of native arteries of extremities, bilateral legs; Z95.1 Presence of aortocoronary bypass graft; I34.0 Nonrheumatic mitral (valve) insufficiency; E78.5 Hyperlipidemia, unspecified; I25.2 Old myocardial infarction; Z79.01 Long term (current) use of anticoagulants; Z79.899 Other long term (current) drug therapy; Z91.013 Allergy to seafood
CPT/HCPCS: 36415; 71045; 71250; 80053; 82803; 83605; 85007; 85025; 87040; 87070; 87077; 87186; 87205; 87581; 87633; 87798; 93005; 93306; 94640; 94761; 96365; 96367; 96372; 96375; 99285; J0456

== ENCOUNTER 2020-06-04 11:28 | Observation (INO) | payer MEDICARE, OTHER, SELFPAY ==
[2020-06-04 11:29] VITALS: BP 198/85; PULSE 79; RESP 18; TEMP 36.4; O2SAT 98; BMI 26.3
--- NOTE | 2020-06-04 11:31 | HMH.EDGENADL ---
ED Disposition Clinical Impression: Paresthesia Disposition: Admitted as Observation Condition on Discharge: Good Referrals: Zehra Barajas [Primary Care Provider] - Time of Disposition: 14:10 - Critical Care Critical Care Time: No Attestation: On , the high probability of a clinically significant, sudden or life threatening deterioration of the following system(s) required my full and direct attention, intervention and personal management. The time I documented below is in addition to time spent performing reported procedures but includes the following listed in this critical care notation. Medical Decision Making - Medical Records Medical records reviewed: Yes: I reviewed the patient's medical records. - Kyle Inquiry Pt receiving controlled substance: No Vital Signs: 06/04/20 11:29 06/04/20 13:47 Temperature 97.5 F L Temperature Source Oral Pulse Rate [Left Radial] 79 81 Respiratory Rate 18 Blood Pressure [Right Arm] 198/85 H 158/86 H Blood Pressure Mean [Right Arm] 122 110 Blood Pressure Source [Right Arm] Automatic Cuff Automatic Cuff Blood Pressure Position [Right Arm] Sitting Sitting 02 Sat by Pulse Oximetry 98 97 Oxygen Delivery Method Room Air Room Air - Lab Data Lab results reviewed: Yes: I reviewed the patient's lab results. Lab Results 06/04/20 11:38: WBC 8.2, RBC 5.07, Hgb 17.1, Hct 49.2, MCV 97.0 H, MCH 33.7 H, MCHC 34.8, RDW 13.4, Plt Count 200, MPV 8.5, Neut % (Auto) 66.1, Lymph % (Auto) 22.3, [place] % (Auto) 8.7, Eos % (Auto) 2.0, Baso % (Auto) 0.9, Neut # (Auto) 5.4, Lymph # (Auto) 1.8, [place] # (Auto) 0.7, Eos # (Auto) 0.2, Baso # (Auto) 0.1 06/04/20 11:38: Sodium 137, Potassium 4.0, Chloride 102, Carbon Dioxide 29, Anion Gap 10.0, BUN 9, Creatinine 1.10, Estimated Creat Clear 72, Estimated GFR 67, Est GFR ( Amer) 81, Glucose 110 H, Calcium 9.8, Total Bilirubin 1.0, AST 57, ALT 36, Alkaline Phosphatase 87, Total Protein 8.5 H D, Albumin 4.8, Globulin 3.7 H, Albumin/Globulin Ratio 1.3 06/04/20 12:12: PT 11.6, INR 0.98, APTT 27.0 Result diagrams: 06/04/20 11:38 06/04/20 11:38 Orders (Tests/Meds): ORDERS Category Date Time Status Covid-19 Nasal PCR (H) Routine Lab 06/04/20 14:00 Ordered CA echo doppler complete Stat Y 06/04/20 14:00 Ordered - CT Data CT Scan: Head Time Received: 12:[address] Reviewed: Yes: I have reviewed the patient's CT results, I have viewed the radiologist's interpretation Preliminary Findings: Normal/NAD Medical Decision Narrative: 64yo M evaluated for paresthesias. Patient's story is concerning for possible stroke. He has a history of vascular disease. Patient is sent for a CT of the head. Labs are pending at this time. He is in no acute distress and his neurologic exam is otherwise unremarkable. CT of the head is unremarkable. Labs returned and are also unremarkable. Results discussed with the patient who is agreeable to staying in the hospital for further work-up. Patient's PCP does not come to this facility and therefore Dr. Soto was consulted for admission. Dr. Eaton graciously excepted care of the patient and requests MR brain without contrast as well as echo with bubble study. General Adult HPI - General Stated complaint: facial numbness Time Seen by Provider: 06/04/20 11:31 Source of Information: Patient - History of Present Illness HPI narrative: 64yo M with past medical history significant for CAD status post cardiac stent as well as stenting to his right lower extremity presents the emergency department with greater than 24 hours of left sided facial numbness and left hand numbness. Patient denies any visual change, headache, chest pain or shortness of breath. Denies any recent fever, known sick contact. - Related Data Home Medications Medication Instructions Recorded Confirmed Clopidogrel Bisulfate [Clopidogrel 75 mg PO DAILY 10/19/19 06/04/20 75mg Tab] Lisinopril/Hydrochlorothiazide 1 tab PO SATYA
--- NOTE | 2020-06-04 11:39 | CT_ITS ---
PROCEDURE: CT HEAD/BRAIN WO CON CLINICAL INDICATION: lt hand and face numbness since yesterday COMPARISON: No exams were available for comparison TECHNIQUE: Axial images obtained. All CT scans at the facility use one or more dose reduction, viz: automated exposure control, ma/kV adjustment per patient size (including targeted exams where dose is matched to indication, i.e. head), or iterative reconstruction technique. FINDINGS: No midline shift, mass effect, intracranial hemorrhage, hydrocephalus, or extra-axial fluid collection is evident. There is generalized atrophy with hypoattenuation of the periventricular white matter consistent with microangiopathic changes. The calvarium has an unremarkable appearance. There is mild mucosal thickening of the ethmoid sinuses. No sinus air-fluid level. IMPRESSION: No acute intracranial finding Dictated by: Genaro Trivedi MD 06/04/2020 12:15 Genaro Trivedi MD in [place] 06/04/2020 12:15
--- NOTE | 2020-06-04 11:42 | PC.NURSE ---
Patient to ct at this time.
[2020-06-04 11:53] LABS: Basophils # 0.1 K/mm3 (0-0.2); Basophils % 0.9 % (0.1-2.0); Eosinophils # 0.2 K/mm3 (0.0-0.4); Hematocrit 49.2 % (42.0-52.0); Hemoglobin 17.1 g/dL (14.1-18.0); Lymphocytes # 1.8 K/mm3 (0.7-4.5); Lymphocytes % 22.3 % (10-50); Mean Corpuscular HGB Conc 34.8 g/dL (31.8-35.4); Mean Corpuscular Hemoglobin 33.7 pg (27.0-31.2); Mean Platelet Volume 8.5 fl (7.4-10.4); Monocytes # 0.7 K/mm3 (0.1-1.0); Monocytes % 8.7 % (1.7-9.3); Neutrophils # 5.4 K/mm3 (1.8-7.8); Neutrophils % 66.1 % (37.0-80.0); Platelet Count 200 K/mm3 (142-424); Red Blood Count 5.07 M/mm3 (4.60-6.20); Red Cell Distribution Width 13.4 % (11.5-17.5); White Blood Count 8.2 K/mm3 (4.8-10.8)
[2020-06-04 12:04] LABS: Chloride 102 mmol/L (98-107); Sodium 137 mmol/L (136-145)
[2020-06-04 12:06] LABS: Alanine Aminotransferase 36 U/L (12-78); Aspartate Amino Transferase 57 U/L (17-59); Blood Urea Nitrogen 9 mg/dl (9-20); Creatinine Clearance Estimated 72 mL/min (50-200); Estimated Glomerular Filt Rate 67 ml/min (>60); GFR (African American) 81 ML/MIN (>60)
[2020-06-04 12:07] LABS: Albumin Level 4.8 g/dl (3.5-5.0); Albumin/Globulin Ratio 1.3 (1.1-1.8); Alkaline Phosphatase 87 U/L (38-126); Calcium 9.8 mg/dl (8.4-10.2); Carbon Dioxide 29 mmol/L (22.0-30.0); Globulin 3.7 g/dL (1.3-3.2); Glucose 110 mg/dl (74-100); Total Protein,Serum 8.5 g/dl (6.3-8.2)
[2020-06-04 12:45] LABS: INR 0.98 (0.9-1.1); Prothrombin Time 11.6 seconds (9.4-11.8)
[2020-06-04 13:47] VITALS: BP 158/86; PULSE 81; O2SAT 97
--- NOTE | 2020-06-04 13:53 | PC.NURSE ---
Provider at bedside discussing care.
--- NOTE | 2020-06-04 14:08 | MR_ITS ---
PROCEDURE: MR HEAD/BRAIN WO CON CLINICAL INDICATION: CVA Left hand and left-sided facial numbness COMPARISON: CT CT HEAD/BRAIN WO CON from 06/04/2020 TECHNIQUE: Routine multiplanar multi echo sequences are performed without gadolinium enhancement. FINDINGS: There is a small focal area restricted diffusion in the right thalamus hyperintense on the diffusion-weighted images and hypointense on ADC images consistent with a small acute lacunar infarction. This area measures approximately 7 x 4 mm no other areas of restricted diffusion are evident. The cerebellopontine angle, cerebellum, and brainstem have an unremarkable appearance. There is generalized atrophy with a few small T2 white matter hyperintensities. The pituitary, optic chiasm, corpus callosum, and craniocervical junction have an unremarkable appearance. No mastoid effusion or sinus air-fluid level. No intracranial hemorrhage apparent. IMPRESSION: Acute lacunar infarction of the right thalamus Dictated by: Genaro Trivedi MD 06/04/2020 15:51 Genaro Trivedi MD in [place] 06/04/2020 15:51
[2020-06-04 14:34] VITALS: BMI 26.9
--- NOTE | 2020-06-04 14:41 | PC.NURSE ---
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 line supervisor states she has already put pt bed assignment in, states pt can go to floor before covid results are back r/t capacity in ER in full at this time. Pt is in MRI at this time, warehouse forklift operator states to have MRI staff transport pt to second floor after they are done with studies, stated to call report to second floor staff.
[2020-06-04 14:53] VITALS: BP 151/79; PULSE 81; RESP 20; TEMP 36.7; O2SAT 98
--- NOTE | 2020-06-04 15:18 | HMH.PHAVTE ---
[facility] Pharmacy VTE Monitoring - Patient Demographics Admission date: 06/04/20 Report Date: 06/04/20 Time: 15:18 Allergies/Adverse Reactions: Patient Allergies Fish Containing Products Allergy (Unknown, Verified 10/19/19 15:39) Unknown allergy reaction fish derived Allergy (Unknown, Verified 10/19/19 15:39) Unknown allergy reaction shellfish derived Allergy (Unknown, Verified 10/19/19 15:39) Unknown allergy reaction Height: 1.7 m Weight: 76.204 kg Patient Problems: Current Active Problems Paresthesia (Acute) - VTE Risk Labs: VTE Related Lab Results Hgb 17.1 g/dL (14.1-18.0) 06/04/20 11:38 Hct 49.2 % (42.0-52.0) 06/04/20 11:38 Plt Count 200 K/mm3 (142-424) 06/04/20 11:38 PT 11.6 seconds (9.4-11.8) 06/04/20 12:12 INR 0.98 (0.9-1.1) 06/04/20 12:12 APTT 27.0 seconds (23.6-34.0) 06/04/20 12:12 BUN 9 mg/dl (9-20) 06/04/20 11:38 Creatinine 1.10 mg/dl (0.66-1.25) 06/04/20 11:38 Estimated Creat Clear 72 mL/min (50-200) 06/04/20 11:38 - Prophylaxis VTE Prophylaxis Ordered?: Yes Types of VTE Prophylaxis: IPCS Thigh High Location of Applied Device: Bilateral Lower Extremeties
[2020-06-04 15:58] VITALS: BP 143/47; PULSE 72; RESP 20; TEMP 36.1; O2SAT 97
--- NOTE | 2020-06-04 17:33 | HMH.HP ---
*Admission Date: 06/04/20 *Chief complaint: Facial paresthesia *History of present illness: 64yo M evaluated for paresthesias. Patient's story is concerning for possible stroke. He has a history of vascular disease. Patient is sent for a CT of the head. Labs are pending at this time. He is in no acute distress and his neurologic exam is otherwise unremarkable. CT of the head is unremarkable. Labs returned and are also unremarkable. Results discussed with the patient who is agreeable to staying in the hospital for further work-up. Patient's PCP does not come to this facility and therefore Dr. Soto was consulted for admission. Dr. Eaton graciously excepted care of the patient and requests MR brain without contrast as well as echo with bubble study. Above note per ER, patient remains on aspirin and Plavix, has been on his blood pressure medicine, unfortunately continues to smoke heavily. [facility] History I have reviewed the patient's past medical history: Yes Medical History: Reports:: Atherosclerotic Heart Disease, Cardiomyopathy, Coronary Artery Disease, Hyperlipidemia, Hypertension, Myocardial Infarction Denies:: Cancer, Diabetes Mellitus Type 1, Diabetes Mellitus Type 2, MRSA *Have you ever received a pneumonia vaccine?: No *Have you received a flu vaccine this season?: No Other Surgeries: Yes: CABG, Other (Neck sx) Amputation: No Fractures: No - *Social History Smoking Status: Current every day smoker Tobacco Type: cigarettes # Packs/Day (cigarettes): 1 Alcohol Intake: current Alcohol Intake Frequency:: 3 or more drinks per day Substance Use Type: marijuana Last Used Substance: unknown *Occupational Status:: employed Housing: house Household Members: none *Travel in the last 8 weeks: None Family Hx:: Diabetes, Heart Attack, Hyperlipidemia, Hypertension, Stroke Review of Systems - Review of Systems Review of systems:: pertinent systems reviewed and negative unless documented below Meds Home Medications Medication Instructions Recorded Confirmed Type Clopidogrel Bisulfate [Clopidogrel 75 mg PO DAILY 10/19/19 06/04/20 History 75mg Tab] Pravastatin Sodium [Pravachol] 40 mg PO HS 10/19/19 06/04/20 History carvediloL [Carvedilol 6.25mg Tab] 6.25 mg PO BID 10/19/19 06/04/20 History Amlodipine Besylate [Amlodipine 5 mg PO DAILY 06/04/20 06/04/20 History 10mg Tab] Aspirin [Aspirin 81mg chewable 81 mg PO DAILY 06/04/20 06/04/20 History tab] Furosemide [Furosemide 20mg Tab*] 20 mg pe PO DAILY 06/04/20 06/04/20 History Allergies Allergy/AdvReac Type Severity Reaction Status Date / Time Fish Containing Products Allergy Unknown Unknown Verified 10/19/19 15:39 allergy reaction fish derived Allergy Unknown Unknown Verified 10/19/19 15:39 allergy reaction shellfish derived Allergy Unknown Unknown Verified 10/19/19 15:39 allergy reaction Exam Vital signs and Labs for Last 24 Hours: Temp Pulse Resp BP Pulse Ox 96.9 F L 72 20 143/47 H 97 06/04/20 15:58 06/04/20 15:58 06/04/20 15:58 06/04/20 15:58 06/04/20 15:58 Laboratory Results - last 24 hr 06/04/20 11:38: WBC 8.2, RBC 5.07, Hgb 17.1, Hct 49.2, MCV 97.0 H, MCH 33.7 H, MCHC 34.8, RDW 13.4, Plt Count 200, MPV 8.5, Neut % (Auto) 66.1, Lymph % (Auto) 22.3, [place] % (Auto) 8.7, Eos % (Auto) 2.0, Baso % (Auto) 0.9, Neut # (Auto) 5.4, Lymph # (Auto) 1.8, [place] # (Auto) 0.7, Eos # (Auto) 0.2, Baso # (Auto) 0.1 06/04/20 11:38: Sodium 137, Potassium 4.0, Chloride 102, Carbon Dioxide 29, Anion Gap 10.0, BUN 9, Creatinine 1.10, Estimated Creat Clear 72, Estimated GFR 67, Est GFR ( Amer) 81, Glucose 110 H, Calcium 9.8, Total Bilirubin 1.0, AST 57, ALT 36, Alkaline Phosphatase 87, Total Protein 8.5 H D, Albumin 4.8, Globulin 3.7 H, Albumin/Globulin Ratio 1.3 06/04/20 12:12: PT 11.6, INR 0.98, APTT 27.0 I & O for Last 24 hours: Intake & Output 06/02/20 06/03/20 06/04/20 06/05/20 11:59 11:59 11:59 11
--- NOTE | 2020-06-04 18:23 | PC.NURSE ---
Pt to floor at 1539, pt is alert and oriented. Pts IV pump started beeping and pts covid swab was pending and he slammed open the door and demanded someone come and shut the pump off, it was driving him crazy. Pt was very agitated and stated he was just going to leave this [facility] place, this RN explained i had to put on PPE prior to entering room per policy and he stated he has had 10 covid tests and he was negative. Pt did state that he drinks a 6 pack a day of beer, smokes a pack of cigarettes a day and occasionally smokes weed. [facility] is [address]. Called Dr. Soto and he ordered x 1 dose of 0.5 mg IV Ativan and to SL IV. Pt did apologize, when this nurse went in to administer Ativan. VSS at this time.
--- NOTE | 2020-06-04 19:04 | PC.NURSE ---
Pt sitting up at this time and have no c/o's. CB in reach.
[2020-06-04 20:00] VITALS: BP 136/69; PULSE 69; RESP 18; TEMP 36.6; O2SAT 98
[2020-06-05] VITALS: BP 134/77; PULSE 76; RESP 17; TEMP 36.7; O2SAT 98
[2020-06-05 03:02] LABS: POC Glucose,Bedside 99 (70-110)
[2020-06-05 04:00] VITALS: BP 138/77; PULSE 69; RESP 16; TEMP 36.6; O2SAT 99
--- NOTE | 2020-06-05 04:23 | PC.NURSE ---
Pt A&O x4, slept well through the night. NO c/o pain. Pt did report still feeling numbness on the left side of the face and down the arm. Bilat hand first aid trainer were normal, PERRLA, face/smile symmetrical. IV patent, SL. bowel sounds x4, abd soft and nontender. Lungs CTA. on RA. VSS, call light in reach, no concerns at this time.
[2020-06-05 05:57] LABS: Basophils # 0.1 K/mm3 (0-0.2); Eosinophils # 0.2 K/mm3 (0.0-0.4); Mean Corpuscular Hemoglobin 33.1 pg (27.0-31.2); White Blood Count 7.3 K/mm3 (4.8-10.8)
[2020-06-05 06:04] LABS: Anion Gap 7.8 mEq/L (5-15); Blood Urea Nitrogen 12 mg/dl (9-20); Calcium 9.2 mg/dl (8.4-10.2); Carbon Dioxide 30 mmol/L (22.0-30.0); Chloride 102 mmol/L (98-107); Chol/HDL Ratio 2.3 (1-3.5); Cholesterol 115 mg/dl (140-200); Creatinine Clearance Estimated 74 mL/min (50-200); Estimated Glomerular Filt Rate 67 ml/min (>60); GFR (African American) 81 ML/MIN (>60); Glucose 92 mg/dl (74-100); HDL Cholesterol 50 mg/dl (40-60); Magnesium 1.8 mg/dl (1.6-2.3); Phosphorous 3.6 mg/dl (2.5-4.5); Potassium 3.8 mmoL/L (3.5-5.1); Sodium 136 mmol/L (136-145); Triglycerides 79 mg/dl (30-150); VLDL Cholesterol 16 mg/dL (0-40)
[2020-06-05 06:15] LABS: Direct LDL Cholesterol 45.17 mg/dL (100-129)
[2020-06-05 06:37] LABS: Basophils % 1.3 % (0.1-2.0); Eosinophils % 2.3 % (0.1-12.0); Hematocrit 43.7 % (42.0-52.0); Lymphocytes # 1.8 K/mm3 (0.7-4.5); Lymphocytes % 25.2 % (10-50); Mean Corpuscular HGB Conc 34.2 g/dL (31.8-35.4); Mean Corpuscular Volume 96.7 fl (80-94); Mean Platelet Volume 8.5 fl (7.4-10.4); Monocytes # 0.8 K/mm3 (0.1-1.0); Monocytes % 10.5 % (1.7-9.3); Neutrophils # 4.4 K/mm3 (1.8-7.8); Neutrophils % 60.8 % (37.0-80.0); Platelet Count 166 K/mm3 (142-424); Red Blood Count 4.52 M/mm3 (4.60-6.20); Red Cell Distribution Width 13.4 % (11.5-17.5)
--- NOTE | 2020-06-05 06:51 | HMH.DCSUM ---
General - General Admission date:: 06/04/20 Discharge date: 06/05/20 HPI HPI: 64yo M evaluated for paresthesias. Patient's story is concerning for possible stroke. He has a history of vascular disease. Patient is sent for a CT of the head. Labs are pending at this time. He is in no acute distress and his neurologic exam is otherwise unremarkable. CT of the head is unremarkable. Labs returned and are also unremarkable. Results discussed with the patient who is agreeable to staying in the hospital for further work-up. Patient's PCP does not come to this facility and therefore Dr. Soto was consulted for admission. Dr. Eaton graciously excepted care of the patient and requests MR brain without contrast as well as echo with bubble study. Above note per ER, patient remains on aspirin and Plavix, has been on his blood pressure medicine, unfortunately continues to smoke heavily. Hospital Course Hospital Course: 64-year-old male with history of tobacco use, hypertension, hyperlipidemia admitted for acute strokelike symptoms and left-sided paresthesia. MRI demonstrated acute lacunar infarct of right thalamus. Patient was monitored overnight. Blood pressure improved, had no further events or progression of his paresthesia. Made hemodynamically stable. Alert and oriented on exam this morning. Tolerating current medical regimen. Echo performed, no septal defects or right to left shunt appreciated. EF greater than 55%. Given the patient's neurologic exam is stable, responding to current medical management with improvement in his blood pressure, is medically stable for discharge home. Plan to continue goal-directed therapy with dual antiplatelet therapy, lisinopril and HCTZ for blood pressure, carvedilol twice a day. Counseled on significance of smoking cessation and decreasing his risk for further episodes Discussed close follow-up with patient, he has an aversion to seeing our office, stressed the importance of him following up with his primary care within the next week. Denies chest pain, shortness of breath, nausea or vomiting today. Of note, no PT or OT recommendations for further therapy, patient at baseline. Objective Vital signs: Temp Pulse Resp BP Pulse Ox 97.9 F 69 16 138/77 99 06/05/20 04:00 06/05/20 04:00 06/05/20 04:00 06/05/20 04:00 06/05/20 04:00 no acute distress - *Routine HEENT Exam Head: Present: normocephalic Eye: Present: EOMI, PERRL ENT: Present: mucous membranes moist - *Routine Neck Exam Present: supple - *Routine Respiratory Exam Present: CTA bilaterally - *Routine Cardiovascular Exam Present: RRR - *Routine Abdominal Exam Present: soft, normoactive bowel sounds. Absent: tenderness - *Routine Extremities Exam Absent: cyanosis, clubbing, edema - *Routine Skin Exam Present: warm. Absent: rash - *Routine Neurological Exam Present: alert, oriented X3, CN II-XII intact, sensory deficit. Absent: motor deficit Results Labs on day of discharge: Labs from last 24 hours 06/05/20 06/05/20 06/04/20 05:41 05:41 12:12 WBC 7.3 RBC 4.52 L Hgb 15.0 D Hct 43.7 MCV 96.7 H MCH 33.1 H MCHC 34.2 RDW 13.4 Plt Count 166 MPV 8.5 Neut % (Auto) 60.8 Lymph % (Auto) 25.2 [place] % (Auto) 10.5 H Eos % (Auto) 2.3 Baso % (Auto) 1.3 Neut # (Auto) 4.4 Lymph # (Auto) 1.8 [place] # (Auto) 0.8 Eos # (Auto) 0.2 Baso # (Auto) 0.1 PT 11.6 INR 0.98 APTT 27.0 Sodium 136 Potassium 3.8 Chloride 102 Carbon Dioxide 30 Anion Gap 7.8 BUN 12 D Creatinine 1.10 Estimated Creat Clear 74 Estimated GFR 67 Est GFR ( Amer) 81 Glucose 92 POC Glucose Calcium 9.2 Phosphorus 3.6 Magnesium 1.8 Total Bilirubin AST ALT Alkaline Phosphatase Total Protein Albumin Globulin Albumin/Globulin Ratio Triglycerides 79 Cholesterol 11
[2020-06-05 08:00] VITALS: BP 163/67; PULSE 65; RESP 16; TEMP 36.7; O2SAT 95
--- NOTE | 2020-06-05 09:12 | HMH.PTEV ---
Physical Therapy Evaluation Rehab PT IP Evaluation Start: 06/05/20 08:06 Freq: ONCE Status: Active Protocol: Document 06/05/20 09:08 HIMANSHUZAIN (Rec: 06/05/20 09:12 DONNA [id number]) Subjective/History History History THis is the initial IP PT evaluation for Kedar Trejo. Pt is a 64 y/o male who began having S&S of paresthesia in L hand and L side face ~ 2 days ago. Pt did not have any c/o weakness or other symptoms. Pt rpeorts he called his PCP and was instructed to go to the ER. Pt reports he was admitted to [facility] thru ED Subjective Subjective pt still reports c/o paresthesia in L hand and L side face Rehab PT IP Eval Objective Appearance Patient Behavior Appropriate,Cooperative Patient Orientation Name,Age,Birthday,Year, Situation Difficulty following instructions none Speech Pattern Clear,Appropriate Ambulation Patient Able to Ambulate Yes Ambulation Observation IP General Gait Pattern Observation No Deviations/Normal Ambulation Distance (feet) 50 Ambulation Assistive Device None Ambulation Ability Independent Balance Ability to Arise Able, w/o using arms Sitting Balance Steady, safe Standing Balance Narrow stance w/o support Dynamic Sitting Balance Ability Normal Dynamic Standing Balance Ability Normal Transfers Bed Transfer Ability Independent Chair Transfer Ability Independent Sit to Stand Bed Transfer Ability Independent Sit to Stand Chair Transfer Ability Independent ROM All Extremities PT ROM Status WNL MMT All Extremities PT MMT WNL Rehab PT IP prob,goals,plan Problems Date of Evaluation: 06/05/20 Rehab Potential Rehab Potential Innapropriate for Skilled Therapy Discharge Plan PT Discharge Plan Pt shows no functional deficits - safe to return home - recommend f/u w/ PCP and neurology for paresthesia G -code Required No PHYSICIAN CERTIFICATION: I certify the specified therapy services for Kedar Guan are required, authorized, and reviewed every 30 days.
--- NOTE | 2020-06-05 09:21 | HMH.OTEV ---
OT Inpatient Evaluation Rehab OT IP Evaluation Start: 06/05/20 08:06 Freq: ONCE Status: Complete Protocol: Document 06/05/20 09:06 JORGE (Rec: 06/05/20 09:20 JORGE [id number]) Rehab OT IP Assessment Subjective History Pt is a 64 yo male who presents w/ paresthesia in L hand and face only. Pt reports that prior to admition he was able to complete all ADLs and IADLs w/ independence. Pt had showered prior to session. Pt demonstrated independence in functional mobibilty for the length of the room and back to bed. Pt was able to don shoes independently. 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 Pt reports that he lives at home and has family who checks on him often. Pt's past medical hx includes atherosclerosis, heart disease , cardio myopathy, CAD, hyperlipidemia, HTN, and OH. Subjective I still have my strength, it' s just numb. Objective Patient Orientation Person,Place,Birthday Upper Extremity Gross ROM WFL Bed Mobility bed mobility-scooting,bed mobility - supine/sit,bed mobility - rolling Assist Level Independent Transfer Training Sit/Stand Transfer Assist Level Independent Lower Body Dressing Ability Independent Rehab OT IP prob,goals,plan Problems Date of Evaluation: 06/05/20 Rehab Potential Rehab Potential Innapropriate for Skilled Therapy Discharge Plan OT Discharge Plan Pt appears to be at baseline. He is safe to return home once medically stable per doctor. Eval Complexity Eval Charge Codes 62043 - Moderate Complexity G Codes G -code Required No PHYSICIAN CERTIFICATION: I certify the specified therapy services for Kedar Guan are required, authorized, and reviewed every 30 days.
== END 2020-06-05 12:24 | disposition home or self-care (01) ==
LOC: ER 14:10 → 2ND 14:56
PROVIDERS: Admitting Provider Internal Medicine Adolescent Medicine; Emergency Provider Family Medicine; PCP Nurse Practitioner Family; Visit Provider Internal Medicine Adolescent Medicine
DX: I63.81 Other cerebral infarction due to occlusion or stenosis of small artery (principal); G81.94 Hemiplegia, unspecified affecting left nondominant side; R29.810 Facial weakness; I10 Essential (primary) hypertension; I25.10 Atherosclerotic heart disease of native coronary artery without angina pectoris; I25.2 Old myocardial infarction; Z95.1 Presence of aortocoronary bypass graft; Z95.820 Peripheral vascular angioplasty status with implants and grafts; Z95.5 Presence of coronary angioplasty implant and graft; E78.5 Hyperlipidemia, unspecified; I42.9 Cardiomyopathy, unspecified; Z79.899 Other long term (current) drug therapy
CPT/HCPCS: 36415; 70450; 70551; 80048; 80053; 80061; 82962; 83735; 84100; 85025; 85610; 85730; 93306; 97166; 99284; G0378; U0003

== ENCOUNTER 2023-11-04 19:57 | Emergency (ER) | payer MEDICARE, SELFPAY ==
--- NOTE | 2023-11-04 19:48 | ED_ITS ---
<Statement entered by Mery Alfonso DO - 11/04/23 23:58> I was consulted by the KELI, and we discussed the complexity of the problems being addressed. I approved the treatment and management plan for this patient's care in the emergency department, thus performing a substantive portion of the medical decision making. Mery Alfonso DO Discharge Plan Disposition Patient Disposition: Home, Self-Care Condition: Good Prescriptions Prescriptions: No Action aspirin 81 MG tablet,chewable 81 mg PO DAILY lisinopril-hydrochlorothiazide 1 EACH tablet 1 each PO DAILY 30 Days Qty: 30 1RF atorvastatin 40 MG tablet 40 mg PO HS 30 Days Qty: 30 1RF carvedilol 6.25 MG tablet 6.25 mg PO BID clopidogrel 75 MG tablet 75 mg PO DAILY Referrals Follow up/Referrals: Elton Gregorio MD [Physician] - See instructions (Asymmetric bulging of the left vocal fold.) Zehra Barajas [Primary Care Provider] - See instructions Activity Restrictions/Add. Instructions Additional Instructions/Restrictions: Follow-up with dermatology as soon as possible for reevaluation of your facial wound. I have referred you to ear nose and throat for abnormality found on your CT scan. Clinical Impressions Clinical Impression: Vocal fold nodule, Alcohol abuse Fall Qualifiers: Encounter type: initial encounter Qualified Code(s): W19.XXXA - Unspecified fall, initial encounter Print Language Print Language: French Discharge ED Provider: Mery Alfonso General Adult HPI <JORGE Saenz - Last Filed: 11/04/23 23:38> General Chief complaint: Fall Stated complaint: skin cancer lesions won't stop bleeding, weakness Time Seen by Provider: 11/04/23 19:59 History of Present Illness HPI narrative: Patient presents for evaluation of a fall. Patient had accidental fall at his home injuring his right hand and suffering several skin tears on his arm. It was a witnessed fall and he did not lose consciousness he did not strike his head. His case is complicated however by the fact that he is a daily drinker of whiskey. During transport to the hospital patient began bleeding from a skin cancer excision site on his left malar prominence done yesterday by [facility]. He is on aspirin Plavix for cardiovascular disease. Currently denies chest pain fever chills hemoptysis hematochezia melena nausea vomiting diarrhea. Related Data Home Medications ?Medication ?Instructions ?Recorded ?Confirmed carvedilol 6.25 mg tablet 6.25 mg PO BID Hypertension 10/19/19 06/04/20 clopidogrel 75 mg tablet 75 mg PO DAILY ANTIPLATELET 10/19/19 06/04/20 aspirin 81 mg chewable tablet 81 mg PO DAILY Blood thinner 06/04/20 06/04/20 Previous Rx's ?Medication ?Instructions ?Recorded atorvastatin 40 mg tablet 40 mg PO HS 30 days #30 tabs 06/05/20 lisinopril 10 1 each PO DAILY 30 days #30 tabs 06/05/20 mg-hydrochlorothiazide 12.5 mg tablet Allergies Allergy/AdvReac Type Severity Reaction Status Date / Time Fish Containing Products Allergy Unknown Unknown Verified 10/19/19 15:39 allergy reaction fish derived Allergy Unknown Unknown Verified 10/19/19 15:39 allergy reaction shellfish derived Allergy Unknown Unknown Verified 10/19/19 15:39 allergy reaction PFSH <JORGE Saenz - Last Filed: 11/04/23 23:38> [facility] Disclaimer: The information contained in this section may have been updated after the patient was seen, as this information can be updated by other users. 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 Wide superficial excision with venous ooze Eye Eye exam: Present normal appearance, PERRL and EOMI ENT ENT exam: Present normal exam and normal oropharynx Neck Neck exam: Present normal inspection and full ROM; Absent tenderness Chest Chest inspection: Present normal inspection and symmetric chest wall rise Respiratory Respiratory exam: Present normal lung sounds bilaterally; Absent accessory muscle use Cardiovascular Cardiovascular exam: Present regular rate, normal rhythm, normal heart sounds, +S1 and +S2 Abdominal Exam Abdominal exam: Present soft and normal bowel sounds; Absent tenderness, guarding or rebound Extremities Exam Extremities exam: Present normal inspection and full ROM Neurological Exam Neurological exam: Present alert, oriented X3 and CN II-XII intact Psychiatric Psychiatric exam: Present normal affect and normal mood Skin Skin exam: Present warm, dry and normal color Lymphatic Lymphatic Findings: no adenopathy Medical Decision Making <JORGE Saenz - Last Filed: 11/04/23 23:38> Medical Records Medical records reviewed: Yes I reviewed the patient's medical records. Kyle Inquiry Pt receiving controlled substance: No Vital Signs: 11/04/23 19:57 11/04/23 22:03 Temperature 98.8 F 98.8 F Temperature Source Oral Oral Pulse Rate 102 H Pulse Rate [Left Radial] 92 H Respiratory Rate 20 18 Blood Pressure 135/73 Blood Pressure [Right Arm] 134/77 Blood Pressure Mean [Right Arm] 96 Blood Pressure Source Automatic Cuff Blood Pressure Source [Right Arm] Automatic Cuff Blood Pressure Position Sitting Blood Pressure Position [Right Arm] Sitting 02 Sat by Pulse Oximetry 100 Oxygen Delivery Method Room Air Room Air Lab Data Lab results reviewed: Yes I reviewed the patient's lab results. Lab Results 11/04/23 20:17: WBC 8.6, RBC 3.33 L, Hgb 11.8 L, Hct 33.3 L, MCV 99.9 H, MCH 35.3 H, MCHC 35.4, RDW 13.0, Plt Count 146, MPV 10.5 H, Neut % (Auto) 81.4 H, Lymph % (Auto) 12.8, [place] % (Auto) 4.8, Eos % (Auto) 0.3, Baso % (Auto) 0.6, Neut # (Auto) 7.0, Lymph # (Auto) 1.1, [place] # (Auto) 0.4, Eos # (Auto) 0.0, Baso # (Auto) 0.1, PT 10.6, INR 0.94, APTT 24.2, Sodium 136, Potassium 4.1, Chloride 109 H, Carbon Dioxide 15 L, Anion Gap 16.1 H, BUN 12, Creatinine 1.00, Estimated Creat Clear 74, Estimated GFR 74, Est GFR ( Amer) 90, Glucose 93, Calcium 7.9 L, Magnesium 1.5 L, Total Bilirubin 0.6, AST 72 H, ALT 50, Alkaline Phosphatase 77, Total Protein 5.9 L D, Albumin 3.3 L, Globulin 2.6, Albumin/Globulin Ratio 1.3, Plasma/Serum Alcohol 24 H, Blood Type O Positive, Antibody Screen Negative 11/04/23 20:17 11/04/23 20:17 Orders (Tests/Meds): ED MEDICATIONS Discontinued Medications Generic Name Dose Route Start Last Admin Trade Name Frejamari PRN Reason Stop Dose Admin Lactated Ringer's 1,000 mls @ 999 mls/hr 11/04/23 19:52 11/04/23 20:10 Lactated Ringer's 1000 Ml Bag IV 11/04/23 20:52 999 mls/hr .Q1H1M ONE Administration Multivitamins 10 ml/ Thiamine 1,015 mls @ 150 mls/hr 11/04/23 21:15 11/04/23 21:53 HCl 100 mg/ Magnesium Sulfate IV 11/05/23 04:00 Not Given 2 gm/ Lactated Ringer's .Q6H46M ALVAREZ ORDERS Category Date Time Status Type and Screen Stat BBK 11/04/23 20:[address] cervical spine wo con Stat Cat Scan 11/04/23 19:[address] head/brain wo con Stat Cat Scan 11/04/23 19:58 Completed Forearm XR right 2 views [XR forearm RT 2V] Stat Exams 11/04/23 19:52 Completed Hand XR right minimum 3 views [XR hand RT min 3V] Stat Exams 11/04/23 19:52 Completed Wrist XR right minimum 3 views [XR wrist RT min 3V] Exams 11/04/23 19:52 Completed Stat Blood alcohol [Ethyl Alcohol] Stat Lab 11/04/23 20:17 Completed CBC w/Auto Diff [Complete Blood Count Auto Diff] Stat Lab 11/04/23 20:17 Completed CMP [Comprehensive Metabolic Panel] Stat Lab 11/04/23 20:17 Completed INR [Prothrombin Time INR] Stat Lab 11/04/23 20:17 Completed Magnesium Stat Lab 11/04/23 20:17 Completed PTT [Activated Partial Thrombo Time] Stat Lab 11/04/23 20:17 Completed Medical Decision Narrative: In summary patient is a 68-year-old male who presents to the emergency department for evaluation of a fall. Patient is hemodynamically stable upon arrival, afebrile. Physical exam is remarkable for venous oozing from his surgical excision on his left malar prominence, he has 3 skin tears on his right upper extremity and otherwise his exam is nonfocal and unremarkable including no chest pain normal breath sounds Krissy Coma Score 15 patient is ambulatory without abnormal gait.. Differential diagnosis includes coagulopathy versus postsurgical complication versus fracture versus intracranial injury etc. Initial workup will be conducted with CT scan of the head and C-spine, plain film x-rays of the right upper extremity, hematologic labs. Initial interventions include Surgicel to the venous oozing crystalloid and Tylenol. Initial workup reviewed by me via my informal interpretation shows no acute intracranial processes nor acute fractures and his hematologic labs are nonactionable. Upon repeat evaluation patient had hemostasis with application of Surgicel to his surgical site. Given this patient is appropriate for discharge with referral back to [facility] for wound evaluation soon as possible, his skin tears were dressed with nonadherent dressing and Tegaderm and patient is appropriate with close follow-up with his PCP within 48 hours. <Mery Alfonso, DO - Last Filed: 11/04/23 23:59> Vital Signs: 11/04/23 19:57 11/04/23 22:03 Temperature 98.8 F 98.8 F Temperature Source Oral Oral Pulse Rate 102 H Pulse Rate [Left Radial] 92 H Respiratory Rate 20 18 Blood Pressure 135/73 Blood Pressure [Right Arm] 134/77 Blood Pressure Mean [Right Arm] 96 Blood Pressure Source Automatic Cuff Blood Pressure Source [Right Arm] Automatic Cuff Blood Pressure Position Sitting Blood Pressure Position [Right Arm] Sitting 02 Sat by Pulse Oximetry 100 Oxygen Delivery Method Room Air Room Air Lab Data Lab Results 11/04/23 20:17: WBC 8.6, RBC 3.33 L, Hgb 11.8 L, Hct 33.3 L, MCV 99.9 H, MCH 35.3 H, MCHC 35.4, RDW 13.0, Plt Count 146, MPV 10.5 H, Neut % (Auto) 81.4 H, Lymph % (Auto) 12.8, [place] % (Auto) 4.8, Eos % (Auto) 0.3, Baso % (Auto) 0.6, Neut # (Auto) 7.0, Lymph # (Auto) 1.1, [place] # (Auto) 0.4, Eos # (Auto) 0.0, Baso # (Auto) 0.1, PT 10.6, INR 0.94, APTT 24.2, Sodium 136, Potassium 4.1, Chloride 109 H, Carbon Dioxide 15 L, Anion Gap 16.1 H, BUN 12, Creatinine 1.00, Estimated Creat Clear 74, Estimated GFR 74, Est GFR ( Amer) 90, Glucose 93, Calcium 7.9 L, Magnesium 1.5 L, Total Bilirubin 0.6, AST 72 H, ALT 50, Alkaline Phosphatase 77, Total Protein 5.9 L D, Albumin 3.3 L, Globulin 2.6, Albumin/Globulin Ratio 1.3, Plasma/Serum Alcohol 24 H, Blood Type O Positive, Antibody Screen Negative Orders (Tests/Meds): ED MEDICATIONS Discontinued Medications Generic Name Dose Route Start Last Admin Trade Name Freq PRN Reason Stop Dose Admin Lactated Ringer's 1,000 mls @ 999 mls/hr 11/04/23 19:52 11/04/23 20:10 Lactated Ringer's 1000 Ml Bag IV 11/04/23 20:52 999 mls/hr .Q1H1M ONE Administration Multivitamins 10 ml/ Thiamine 1,015 mls @ 150 mls/hr 11/04/23 21:15 11/04/23 21:53 HCl 100 mg/ Magnesium Sulfate IV 11/05/23 04:00 Not Given 2 gm/ Lactated Ringer's .Q6H46M ALVAREZ ORDERS Category Date Time Status Type and Screen Stat BBK 11/04/23 20:[address] cervical spine wo con Stat Cat Scan 11/04/23 19:[address] head/brain wo con Stat Cat Scan 11/04/23 19:58 Completed Forearm XR right 2 views [XR forearm RT 2V] Stat Exams 11/04/23 19:52 Completed Hand XR right minimum 3 views [XR hand RT min 3V] Stat Exams 11/04/23 19:52 Completed Wrist XR right minimum 3 views [XR wrist RT min 3V] Exams 11/04/23 19:52 Completed Stat Blood alcohol [Ethyl Alcohol] Stat Lab 11/04/23 20:17 Completed CBC w/Auto Diff [Complete Blood Count Auto Diff] Stat Lab 11/04/23 20:17 Completed CMP [Comprehensive Metabolic Panel] Stat Lab 11/04/23 20:17 Completed INR [Prothrombin Time INR] Stat Lab 11/04/23 20:17 Completed Magnesium Stat Lab 11/04/23 20:17 Completed PTT [Activated Partial Thrombo Time] Stat Lab 11/04/23 20:17 Completed ECG Data Tracing #1: I reviewed this ECG and interpreted as documented below: Normal sinus rhythm with a ventricular rate of 90 bpm. Right bundle branch block noted. Q waves present in 2 and aVF. No acute STEMI. ECG initial impression date: 11/04/23 ECG initial impression time: 20:14 Critical Care <JORGE Saenz - Last Filed: 11/04/23 23:38> Critical Care Time Critical Care Time: No
--- NOTE | 2023-11-04 19:52 | XR_ITS ---
PROCEDURE INFORMATION: Exam: XR Right Wrist Exam date and time: 11/04/2023 8:19 PM Age: 68 years old Clinical indication: Injury or trauma; Fall; Other: Pain TECHNIQUE: Imaging protocol: Radiologic exam of the right wrist. Views: 3 or more views. COMPARISON: CR XR FOREARM RT 2V 11/04/2023 8:19 PM FINDINGS: Bones/joints: No acute fracture or malalignment. Soft tissues: Dorsal/ulnar wrist soft tissue swelling. IMPRESSION: No acute osseous findings.
--- NOTE | 2023-11-04 19:52 | XR_ITS ---
PROCEDURE INFORMATION: Exam: XR Right Hand Exam date and time: 11/04/2023 8:19 PM Age: 68 years old Clinical indication: Injury or trauma; Fall; Other: Pain TECHNIQUE: Imaging protocol: Radiologic exam of the right hand. Views: 3 or more views. COMPARISON: CR XR FOREARM RT 2V 11/04/2023 8:19 PM FINDINGS: Bones/joints: No acute fracture or malalignment. Soft tissues: Dorsal/ulnar wrist soft tissue swelling. IMPRESSION: No acute osseous findings.
--- NOTE | 2023-11-04 19:52 | XR_ITS ---
PROCEDURE INFORMATION: Exam: XR Right Forearm Exam date and time: 11/04/2023 8:19 PM Age: 68 years old Clinical indication: Injury or trauma; Fall; Other: Pain TECHNIQUE: Imaging protocol: Radiologic exam of the right forearm. Views: 2 views. COMPARISON: CR XR HAND RT MIN 3V 11/04/2023 8:19 PM FINDINGS: Bones/joints: No acute fracture or malalignment. Olecranon enthesopathy. No elbow joint effusion. Soft tissues: Dorsal/ulnar wrist soft tissue swelling. IMPRESSION: No acute osseous findings.
[2023-11-04 19:57] VITALS: BP 134/77; PULSE 92; RESP 20; TEMP 37.1; O2SAT 100; BMI 26.6
--- NOTE | 2023-11-04 19:58 | CT_ITS ---
PROCEDURE INFORMATION: Exam: CT Head Without Contrast Exam date and time: 11/04/2023 8:24 PM Age: 68 years old Clinical indication: Injury or trauma; Fall; Other: Pain; Additional info: Fall, alcohol abuse TECHNIQUE: Imaging protocol: Computed tomography of the head without contrast. Radiation optimization: All CT scans at this facility use at least one of these dose optimization techniques: automated exposure control; mA and/or kV adjustment per patient size (includes targeted exams where dose is matched to clinical indication); or iterative reconstruction. COMPARISON: CT HEAD/BRAIN WO CON 11/04/2023 8:24 PM FINDINGS: Brain: Age-related involutional changes and chronic microvascular ischemic disease. No evidence for acute transcortical infarct. No mass effect or midline shift. No extra-axial collection. No acute intracranial hemorrhage. Basal cisterns are patent. Cerebral ventricles: No ventriculomegaly. Paranasal sinuses: Visualized sinuses are unremarkable. No fluid levels. Mastoid air cells: Visualized mastoid air cells are well aerated. Bones: No acute calvarial fracture. Soft tissues: Left frontal scalp swelling. No radiopaque foreign body. IMPRESSION: 1. Left frontal scalp swelling. No radiopaque foreign body. No acute calvarial fracture. 2. No evidence for acute transcortical infarct, acute intracranial hemorrhage, or mass effect.
--- NOTE | 2023-11-04 19:58 | CT_ITS ---
PROCEDURE INFORMATION: Exam: CT Cervical Spine Without Contrast Exam date and time: 11/04/2023 8:26 PM Age: 68 years old Clinical indication: Injury or trauma; Fall; Other: Pain; Additional info: Fall, alcohol abuse TECHNIQUE: Imaging protocol: Computed tomography of the cervical spine without contrast. Radiation optimization: All CT scans at this facility use at least one of these dose optimization techniques: automated exposure control; mA and/or kV adjustment per patient size (includes targeted exams where dose is matched to clinical indication); or iterative reconstruction. COMPARISON: CT HEAD/BRAIN WO CON 11/04/2023 8:24 PM FINDINGS: Bones: No acute fracture or traumatic subluxation. Vertebrae: No spondylolisthesis. The atlantooccipital and atlantoaxial articulations are intact. Other bones/joints: Occipital condyles are intact. Vertebrae: Facet joint alignments are maintained. Age-related degenerative disc disease. Multilevel degenerative changes of the cervical spine. Larynx: Asymmetric bulging of the left vocal fold. Prevertebral and retropharyngeal spaces: No prevertebral soft tissue swelling. Lungs: Lung apices are normal. Soft tissues: Unremarkable. IMPRESSION: 1. No acute fracture or traumatic subluxation. 2. Asymmetric bulging of the left vocal fold. Correlate with visual inspection for possible mass.
[2023-11-04] MEDS: LACTATED RINGERS 1000ML 1,000 ML 999 ML IV (20:10)
--- NOTE | 2023-11-04 20:10 | ECG_ITS ---
APPROVED REPORT Exam: Resting ECG HR:90 bpm ECG Measurements Heart Rate 90 AXES IA 131 P 76 QRSd 129 QRS 20 QT 380 T 38 QTc 428 Conclusion SINUS RHYTHM POSSIBLE LEFT ATRIAL ENLARGEMENT [-0.1mV P-WAVE IN V1/V2] INDETERMINATE AXIS RIGHT BUNDLE BRANCH BLOCK [120+ ms QRS DURATION, UPRIGHT V1, 40+ ms S IN I/aVL/V4/V5/V6] INFERIOR MYOCARDIAL INFARCTION , PROBABLY OLD [40+ ms Q WAVE AND/OR ST/T ABNORMALITY IN II/aVF] ABNORMAL ECG Electronically signed by : ARACELIS DUNCAN, 11/05/2023 00:48:27
--- NOTE | 2023-11-04 20:13 | PC.NURSE ---
lab at bedside to draw labs
[2023-11-04 20:30] LABS: Basophils # 0.1 K/mm3 (0-0.2); Basophils % 0.6 % (0.1-2.0); Eosinophils % 0.3 % (0.1-12.0); Hematocrit 33.3 % (42.0-52.0); Hemoglobin 11.8 g/dL (14.1-18.0); Lymphocytes # 1.1 K/mm3 (0.7-4.5); Lymphocytes % 12.8 % (10-50); Mean Corpuscular HGB Conc 35.4 g/dL (31.8-35.4); Mean Corpuscular Hemoglobin 35.3 pg (27.0-31.2); Mean Corpuscular Volume 99.9 fl (80-94); Mean Platelet Volume 10.5 fl (7.4-10.4); Monocytes # 0.4 K/mm3 (0.1-1.0); Monocytes % 4.8 % (1.7-9.3); Neutrophils % 81.4 % (37.0-80.0); Platelet Count 146 K/mm3 (142-424); Red Blood Count 3.33 M/mm3 (4.60-6.20); White Blood Count 8.6 K/mm3 (4.8-10.8)
[2023-11-04 20:41] LABS: INR 0.94 (0.9-1.1); Prothrombin Time 10.6 seconds (10.1-12.5)
[2023-11-04 20:45] LABS: Chloride 109 mmol/L (98-107)
[2023-11-04 20:46] LABS: Activated Partial Thrombo Time 24.2 seconds (22.8-30.6); Albumin Level 3.3 g/dl (3.5-5.0); Potassium 4.1 mmoL/L (3.5-5.1); Sodium 136 mmol/L (136-145)
[2023-11-04 20:48] LABS: Anion Gap 16.1 mEq/L (5-15); Blood Urea Nitrogen 12 mg/dl (9-20); Carbon Dioxide 15 mmol/L (22.0-30.0); Creatinine Clearance Estimated 74 mL/min (50-200); Estimated Glomerular Filt Rate 74 ml/min (>60); Ethyl Alcohol 24 mg/dl (0-10); GFR (African American) 90 ML/MIN (>60); Magnesium 1.5 mg/dl (1.6-2.3)
[2023-11-04 20:49] LABS: Alanine Aminotransferase 50 U/L (12-78); Albumin/Globulin Ratio 1.3 (1.1-1.8); Alkaline Phosphatase 77 U/L (38-126); Aspartate Amino Transferase 72 U/L (17-59); Bilirubin,Total 0.6 mg/dl (0.2-1.3); Calcium 7.9 mg/dl (8.4-10.2); Globulin 2.6 g/dL (1.3-3.2); Glucose 93 mg/dl (74-100); Total Protein,Serum 5.9 g/dl (6.3-8.2)
--- NOTE | 2023-11-04 21:40 | PC.NURSE ---
rounded on pt at this time. Pt voices no needs. Wound on face is no longer bleeding . Steffanie marshall notified.
[2023-11-04 22:03] VITALS: BP 135/73; PULSE 102; RESP 18; TEMP 37.1; O2SAT 98
== END 2023-11-04 22:08 | disposition home or self-care (01) ==
PROVIDERS: Physician Assistant; Emergency Provider Emergency Medicine; PCP Nurse Practitioner Family
DX: J38.2 Nodules of vocal cords (principal); F10.10 Alcohol abuse, uncomplicated; F17.210 Nicotine dependence, cigarettes, uncomplicated; I45.10 Unspecified right bundle-branch block; L76.22 Postprocedural hemorrhage of skin and subcutaneous tissue following other procedure; S51.801A Unspecified open wound of right forearm, initial encounter; W19.XXXA Unspecified fall, initial encounter; Z86.79 Personal history of other diseases of the circulatory system; Z79.01 Long term (current) use of anticoagulants
CPT/HCPCS: 36415; 70450; 72125; 73090; 73110; 73130; 80050; 80053; 80320; 83735; 85025; 85610; 85730; 86850; 93005; 96361; 96365; 99285; G0480; J7120